=== PATIENT | female | born 1955 | race African-American/Black ===

== ENCOUNTER 2016-08-27 11:44 | Outpatient (CLI) | payer OTHER ==
--- NOTE | 2016-08-28 07:30 | Mammography Report ---
DIGITAL BILATERAL SCREENING MAMMOGRAM: 08/27/2016 CLINICAL HISTORY: A 61-year-old female in for routine screening mammogram. Family history indicates an aunt with breast cancer. Patient has had no prior breast surgeries. COMPARISON: 11/07/2006, 08/18/2008, 01/04/2011, 01/22/2012, 01/26/2013, 03/15/2014, 06/09/2015 TECHNIQUE: Craniocaudad and oblique lateral views of each breast were obtained with [facility] digital mammography. An axillary exaggerated craniocaudad view of the left breast was done to com pliment the exam. FINDINGS: Heterogeneously dense breasts are noted bilaterally. No significant clusters of calcifica tion are seen. No significant masses are noted. No change is noted. IMPRESSION: BREASTS APPEAR RADIOGRAPHICALLY BENIGN. BIRADS CATEGORY 1 - NEGATIVE. RECOMMENDATIONS: Annual bilateral screening mammography. STANDARD QUALIFYING STATEMENTS 1. This examination was reviewed with the aid of Computer-Aided Detection (CAD). 2. A negative or benign imaging report should not delay biopsy if clinically suspicious findings are present. Consider surgical consultation if warranted. More than 5% of cancers are not identified by i ing. 3. Dense breasts may obscure an underlying neoplasm. JOB #: [id number] EXT JOB #:[id number]
== END 2016-08-27 11:45 | disposition home or self-care (01) ==
LOC: DI.N 11:44
PROVIDERS: ATTEND Family Medicine
DX: Z12.31 Encounter for screening mammogram for malignant neoplasm of breast (principal)
CPT/HCPCS: 77067

== ENCOUNTER 2016-09-22 09:03 | Emergency (ER) | payer OTHER ==
[2016-09-22] MEDS ORDERED: SODIUM CHLORIDE 0.9% 1,000 ML IV ONE (10:26)
[2016-09-22 10:32] LABS: BASOPHILS % (AUTO) 0.4 %; EOSINOPHILS # (AUTO) 0.2 10^3/uL (0.0-0.7); HCT - HEMATOCRIT 38.7 % (37.0-47.0); HGB - HEMOGLOBIN 12.8 g/dL (12.0-16.0); LYMPHOCYTES # (AUTO) 1.3 10^3/uL (1.5-3.5); LYMPHOCYTES % (AUTO) 16.6 %; MEAN CORPUSCULAR HEMOGLOBIN 29.5 pg (27.0-31.0); MEAN CORPUSCULAR HGB CONC 33.1 g/dL (32.0-36.0); MEAN CORPUSCULAR VOLUME 89.1 fL (81.0-99.0); MEAN PLATELET VOLUME 9.3 fL (7.9-10.8); MONOCYTES # (AUTO) 0.6 10^3/uL (0.0-1.0); MONOCYTES % (AUTO) 7.9 %; NEUTROPHILS # (AUTO) 5.7 10^3/uL (1.5-6.6); NEUTROPHILS % (AUTO) 73.1 %; RED BLOOD COUNT 4.34 10^6/uL (4.20-5.40); RED CELL DISTRIBUTION WIDTH 13.1 % (12.0-15.0); UNCORRECTED WHITE BLOOD COUNT 7.9 x10^3/uL; WHITE BLOOD COUNT 7.9 x10^3/uL (4.8-10.8)
[2016-09-22 10:44] LABS: ALBUMIN/GLOBULIN RATIO 1.4 (1.0-2.2); BILIRUBIN,TOTAL 0.7 mg/dL (0.2-1.0); CALCIUM 9.1 mg/dL (8.5-10.3); TOTAL PROTEIN 7.3 g/dL (6.7-8.2)
[2016-09-22 10:50] LABS: BILIRUBIN,URINE NEGATIVE (NEGATIVE)
[2016-09-22 10:56] LABS: UA CHARGE (STRIP ONLY) YES; UR CULTURE IF IND NOT INDICATED
[2016-09-22] MEDS ORDERED: DEXAMETHASONE 10 MG/ML VIAL IVP STA (13:06)
[2016-09-22] MEDS ORDERED: KETOROLAC 60 MG/2 ML VIAL IVP STA (13:06)
[2016-09-22] MEDS ORDERED: diphenhydrAMINE INJ 50 MG/ML VIAL IVP STA (13:06)
[2016-09-22] MEDS ORDERED: PROCHLORPERAZINE 10 MG/2 ML VIAL IVP STA (13:06)
[2016-09-22] MEDS ORDERED: PROCHLORPERAZINE 10 MG/2 ML VIAL ONE (13:27)
[2016-09-22] MEDS ORDERED: KETOROLAC 30 MG/ML VIAL ONE (13:27)
[2016-09-22] MEDS ORDERED: diphenhydrAMINE INJ 50 MG/ML VIAL ONE (13:27)
[2016-09-22] MEDS ORDERED: DEXAMETHASONE 10 MG/ML VIAL ONE (13:28)
--- NOTE | 2016-09-22 13:40 | ED Physician Documentation ---
PD HPI NVD - Stated complaint Stated Complaint: ABD PX/DIARRHEA/FEMALE - Chief complaint Chief Complaint: Abd Pain - History obtained from History obtained from: Patient - History of Present Illness Timing - onset: Last night Timing - duration: Hours Timing - details: Gradual onset, Still present Associated symptoms: Abdominal pain, Hematochezia Contributing factors: No: Sick contact Improved by: Laying still Worsened by: Eating Similar symptoms before: Diagnosis (gastroenteritis) Recently seen: Not recently seen - Additonal information Additional information: 61-year-old female had the acute onset of nausea vomiting and diarrhea last night. She has had diarrhea numerous times and this morning she had some blood in the stool as well. She has had diarrhea previously and not frequently. Review of Systems Constitutional: reports: Chills, Fatigue. denies: Fever Eyes: denies: Decreased vision Ears: denies: Ear pain Nose: denies: Congestion Throat: denies: Sore throat Cardiac: denies: Chest pain / pressure, Palpitations Respiratory: denies: Dyspnea, Cough GI: reports: Abdominal Pain, Nausea, Vomiting, Diarrhea : denies: Dysuria, Frequency Skin: denies: Rash Musculoskeletal: denies: Neck pain, Back pain, Extremity pain PD PAST MEDICAL HISTORY - Past Medical History Cardiovascular: None Respiratory: None Endocrine/Autoimmune: None GI: GERD : Incontinence HEENT: None Psych: Depression Musculoskeletal: Osteoarthritis, Chronic back pain, Other Derm: None - Past Surgical History Past Surgical History: Yes General: Colonoscopy - Present Medications Home Medications: Ambulatory Orders Medication Instructions Recorded Confirmed Lansoprazole 30 mg PO BID 03/06/13 09/22/16 Oxycodone HCl [Oxycontin] 10 mg PO BID 03/06/13 09/22/16 Medroxyprogesterone Acetate 2.5 mg PO DAILY 05/11/13 09/22/16 PARoxetine [Paxil] 40 mg PO DAILY 05/11/13 09/22/16 Sumatriptan [Imitrex] 25 mg PO ONCE PRN 05/11/13 09/22/16 Tizanidine HCl 2 mg PO HS PRN 05/11/13 09/22/16 Amitriptyline [Elavil] 25 mg PO DAILY 09/22/16 09/22/16 Mirabegron [Myrbetriq] 25 mg PO DAILY 09/22/16 09/22/16 - Allergies Allergies/Adverse Reactions: Allergies Allergy/AdvReac Type Severity Reaction Status Date / Time metronidazole [From Flagyl] Allergy Intermediate Unknown Verified 05/11/13 14:52 Metronidazole HCl * Allergy Intermediate Unknown Verified 05/11/13 14:52 [From Flagyl] Penicillins Allergy Intermediate Hives Verified 05/11/13 14:49 tetracycline [Tetracycline] Allergy Intermediate Hives Verified 05/11/13 14:52 nortriptyline [Nortriptyline] Allergy Unknown Unknown Verified 05/11/13 14:51 cyclobenzaprine HCl * Allergy Unknown Verified 09/22/16 10:35 [From Flexeril] - Social History Does the pt smoke?: No Smoking Status: Never smoker Does the pt drink ETOH?: No Does the pt have substance abuse?: No - Immunizations Immunizations are current?: Yes - POLST Patient has POLST: No PD ED PE NORMAL - Vitals Vital signs reviewed: Yes (normal ) - General General: No acute distress, Well developed/nourished - HEENT HEENT: Atraumatic, PERRL, EOMI - Neck Neck: Supple, no meningeal sign - Cardiac Cardiac: RRR, No murmur - Respiratory Respiratory: No respiratory distress, Clear bilaterally - Abdomen Abdomen: Soft, Other (mild general tenderness without garding or rebound. ) - Back Back: No CVA TTP, No spinal TTP - Derm Derm: Normal color, Warm and dry, No rash - Extremities Extremities: No deformity, No edema - Neuro Neuro: No motor deficit, No sensory deficit - Psych Psych: Normal mood, Normal affect Results - Vitals Vitals: Vital Signs - 24 hr 09/22/16 09/22/16 09:06 12:30 Temperature 36.6 C 36.8 C Heart Rate 72 67 Respiratory 20 18 Rate Blood Pressure 110/61 138/70 H O2 Saturation 99 99 Oxygen O2 Source Room air - Labs Labs: Microbiology 09/22/16 11:50 Campylobacter Antigen Assay - Preliminary Stool Laboratory Tests 09/22/16 09/22/16 09/22/16 09:20 09:20 09:20 WBC 7.9 RBC 4.34 Hgb 12.8 Hct 38.7 MCV 89.1 MCH 29.5 MCHC 33.1 RDW 13.1 Plt Count 210 MPV 9.3 Neut # 5.7 Lymph # 1.[address] [place] # 0.6 Eos # 0.2 Baso # 0.0 Absolute Nucleated RBC 0.00 Nucleated RBCs 0.0 Sodium 138 Potassium 4.0 Chloride 105 Carbon Dioxide 25 Anion Gap 8.0 BUN 18 Creatinine 1.0 Estimated GFR (MDRD) 68 L Glucose 92 Calcium 9.1 Total Bilirubin 0.7 AST 22 ALT 18 Alkaline Phosphatase 56 Troponin I < 0.04 Total Protein 7.3 Albumin 4.3 Globulin 3.0 Albumin/Globulin Ratio 1.4 Lipase 28 Urine Color Urine Clarity Urine pH Ur Specific [place] Urine Protein Urine Glucose (UA) Urine Ketones Urine Occult Blood Urine Nitrite Urine Bilirubin Urine Urobilinogen Ur Leukocyte Esterase Ur Microscopic Review Urine Culture Comments 09/22/16 10:39 WBC RBC Hgb Hct MCV MCH MCHC RDW Plt Count MPV Neut # Lymph # [place] # Eos # Baso # Absolute Nucleated RBC Nucleated RBCs Sodium Potassium Chloride Carbon Dioxide Anion Gap BUN Creatinine Estimated GFR (MDRD) Glucose Calcium Total Bilirubin AST ALT Alkaline Phosphatase Troponin I Total Protein Albumin Globulin Albumin/Globulin Ratio Lipase Urine Color YELLOW Urine Clarity CLEAR Urine pH 6.0 Ur Specific [place] 1.010 Urine Protein NEGATIVE Urine Glucose (UA) NEGATIVE Urine Ketones NEGATIVE Urine Occult Blood TRACE-INTA Urine Nitrite NEGATIVE Urine Bilirubin NEGATIVE Urine Urobilinogen 0.2 (NORMAL) Ur Leukocyte Esterase NEGATIVE Ur Microscopic Review NOT INDICATED Urine Culture Comments NOT INDICATED Procedures - IVC sono (time) 0930 Bedside IVC sono: IVC measures (cm) (0.89), IVC collapsed c insp (cm) (completee ), Dehydration PD MEDICAL DECISION MAKING - ED course Complexity details: reviewed results, re-evaluated patient, considered differential, d/w patient ED course: 61-year-old female with acute nausea vomiting and diarrhea has developed dehydration and here in the emergency department she is administered normal saline intravenously and Zofran. She is able to produce a specimen in the emergency department which is negative for Campylobacter antigen. She is administered 2 L of name normal saline and feels improved then develops migraine -like headache. She has a history of migraines and she was treated in the emergency department for migraine with the addition of Compazine Benadryl Toradol and dexamethasone.She relates this headache is similar similar to what she has had previously with her aura and has now resolved. Departure - Departure Disposition: 01 Home, Self Care Clinical Impression: Gastroenteritis, Dehydration Migraine Qualifiers: Migraine type: with aura Status migrainosus presence: without status migrainosus Intractability: not intractable Qualified Code(s): G43.109 - Migraine with aura, not intractable, without status migrainosus Condition: Stable Instructions: ED Gastroenteritis Viral, ED Dehydration, ED Headache Migraine Follow-Up: Aric Odell DO [Primary Care Provider] -
[2016-09-22 14:20] VITALS: BP 129/69
== END 2016-09-22 14:44 | disposition home or self-care (01) ==
LOC: ED 09:03
DX: K52.9 Noninfective gastroenteritis and colitis, unspecified (principal); E86.0 Dehydration; G43.109 Migraine with aura, not intractable, without status migrainosus; K21.9 Gastro-esophageal reflux disease without esophagitis
CPT/HCPCS: 36415; 80053; 81001; 81003; 83690; 84484; 85025; 87045; 87046; 87077; 87086; 96374; 96375; 99283; 99284

== ENCOUNTER 2016-11-15 11:50 | Outpatient (CLI) | payer OTHER ==
[2016-11-15 19:21] LABS: BILIRUBIN,URINE NEGATIVE (NEGATIVE); PH,URINE 7.5 PH (5.0-7.5)
[2016-11-15 19:22] LABS: BASOPHILS % (AUTO) 0.5 %; EOSINOPHILS # (AUTO) 0.2 10^3/uL (0.0-0.7); EOSINOPHILS % (AUTO) 4.1 %; HCT - HEMATOCRIT 38.5 % (37.0-47.0); HGB - HEMOGLOBIN 12.5 g/dL (12.0-16.0); LYMPHOCYTES # (AUTO) 1.4 10^3/uL (1.5-3.5); LYMPHOCYTES % (AUTO) 26.4 %; MEAN CORPUSCULAR HEMOGLOBIN 29.9 pg (27.0-31.0); MEAN CORPUSCULAR HGB CONC 32.5 g/dL (32.0-36.0); MEAN PLATELET VOLUME 9.4 fL (7.9-10.8); MONOCYTES # (AUTO) 0.5 10^3/uL (0.0-1.0); MONOCYTES % (AUTO) 9.9 %; NEUTROPHILS % (AUTO) 59.1 %; RED BLOOD COUNT 4.19 10^6/uL (4.20-5.40); RED CELL DISTRIBUTION WIDTH 13.3 % (12.0-15.0); UNCORRECTED WHITE BLOOD COUNT 5.1 x10^3/uL; WHITE BLOOD COUNT 5.1 x10^3/uL (4.8-10.8)
[2016-11-15 19:25] LABS: WBC,URINE 0-3 /HPF (0-5)
[2016-11-15 19:43] LABS: ALBUMIN/GLOBULIN RATIO 1.6 (1.0-2.2); BILIRUBIN,TOTAL 0.7 mg/dL (0.2-1.0); BUN - BLOOD UREA NITROGEN 15 mg/dL (6-20); CALCIUM 8.9 mg/dL (8.5-10.3); CARBON DIOXIDE - CO2 29 mmol/L (21-32); CHLORIDE 102 mmol/L (101-111); CHOL/HDL RATIO 2.8 (<4.4); CHOLESTEROL 177 mg/dL; GFR - MDRD 68 (>89); GLUCOSE 83 mg/dL (70-100); HDL CHOLESTEROL 64 mg/dL; LDL/HDL RATIO 1.5 (<4.4); POTASSIUM 4.2 mmol/L (3.5-5.0); SODIUM 138 mmol/L (135-145); TOTAL PROTEIN 7.2 g/dL (6.7-8.2); TRIGLYCERIDES 102 mg/dL; VLDL CHOLESTEROL 20 mg/dL
== END 2016-11-15 11:51 | disposition home or self-care (01) ==
LOC: LAB.WCP 11:50
PROVIDERS: ATTEND Family Medicine
DX: R07.89 Other chest pain (principal); R31.9 Hematuria, unspecified
CPT/HCPCS: 36415; 80053; 80061; 81001; 84443; 84484; 85025

== ENCOUNTER 2017-01-31 09:55 | Outpatient (CLI) | payer OTHER ==
[2017-01-31] MEDS ORDERED: IOPAMIDOL-300 50 ML VIAL ONE (10:05)
[2017-01-31] MEDS ORDERED: IOPAMIDOL-300 100 ML VIAL ONE (10:05)
[2017-01-31] MEDS ORDERED: IOPAMIDOL-300 50 ML VIAL PO ONE (11:47)
[2017-01-31] MEDS ORDERED: IOPAMIDOL-300 100 ML VIAL IVP ONE (11:47)
--- NOTE | 2017-01-31 12:50 | CT Report ---
CT OF THE ABDOMEN AND PELVIS WITH CONTRAST: 01/31/2017 CLINICAL INDICATION: Abdominal bloating. TECHNIQUE: Axial CT images of the abdomen and pelvis were obtained with 100 mL of Isovue-300 intraven ously as well as oral contrast. COMPARISON: 10/02/2015. FINDINGS: Limited evaluation of the lung bases is unremarkable. ABDOMEN: The liver, spleen, pancreas, kidneys and adrenal glands are unremarkable. The gallbladder is not dilated. No bowel dilatation, free gas, or free fluid is present. No abdominal adenopathy is see n. PELVIS: The pelvic organs appear unremarkable. The appendix is seen in the right lower quadrant, and is normal in caliber. No pelvic adenopathy or free fluid is present. The osseous structures demonstrate stable degenerative and postsurgical changes. IMPRESSION: NO EVIDENT ETIOLOGY FOR PATIENT'S BLOATING. NO SIGNIFICANT INTERVAL CHANGE FROM 10/02/19 16. In accordance with CT protocol optimization, one or more of the following dose reduction techniques w ere utilized for this exam: automated exposure control, adjustment of mA and/or KV based on patient size, or use of iterative reconstructive technique. JOB #: [id number] EXT JOB #:[id number]
== END 2017-01-31 09:56 | disposition home or self-care (01) ==
LOC: DI 09:55
PROVIDERS: ATTEND Family Medicine
DX: R14.0 Abdominal distension (gaseous) (principal)
CPT/HCPCS: 74177; Q9967

== ENCOUNTER 2018-03-14 11:46 | Emergency (ER) | payer OTHER ==
[2018-03-14] MEDS ORDERED: IBUPROFEN 800 MG TABLET PO STA (12:27)
--- NOTE | 2018-03-14 12:31 | ED Physician Documentation ---
PD HPI SYNCOPE - Stated complaint Stated Complaint: GLF - Chief complaint Chief Complaint: Neuro - History obtained from History obtained from: Patient - History of Present Illness Witnessed: Unwitnessed (6 nights ago on [place] she was having a migraine with is not atypical for her. She had taken her usual medications which include amitriptyline And Imitrex. She went to the bathroom and started to feel dizzy and either fell and then blacked out or syncopized. She does not know how long she was out for and somehow made her way back to the bed. Her daughter checked on her the next morning, she was incontinent of urine. They got her up and change her and then she went to back to bed for another 24 hours. Since then she is feeling okay and her migraine is gone but she does have left-sided high neck pain that is worse with certain positions and rotation. She also noted bloody stools yesterday which she has had before, her last colonoscopy was many years ago. There is no associated chest pain or shortness of breath. She is not anticoagulated.) Review of Systems Constitutional: denies: Fever, Chills Eyes: reports: Loss of vision (Chronic, she has terrible glaucoma status post several surgeries) Ears: denies: Loss of hearing, Ear pain Nose: denies: Rhinorrhea / runny nose, Congestion, Epistaxis Throat: denies: Sore throat Cardiac: denies: Chest pain / pressure, Palpitations Respiratory: denies: Dyspnea, Cough PD PAST MEDICAL HISTORY - Past Medical History Cardiovascular: None Respiratory: None Endocrine/Autoimmune: None GI: GERD : Incontinence HEENT: None Psych: Depression Musculoskeletal: Osteoarthritis, Chronic back pain, Other Derm: None - Past Surgical History Past Surgical History: Yes General: Colonoscopy - Present Medications Home Medications: Ambulatory Orders Medication Instructions Recorded Confirmed Lansoprazole 30 mg PO BID 03/06/13 09/22/16 Oxycodone HCl [Oxycontin] 10 mg PO BID 03/06/13 09/22/16 Medroxyprogesterone Acetate 2.5 mg PO DAILY 05/11/13 09/22/16 PARoxetine [Paxil] 40 mg PO DAILY 05/11/13 09/22/16 SUMAtriptan [Imitrex] 25 mg PO ONCE PRN 05/11/13 09/22/16 Tizanidine HCl 2 mg PO HS PRN 05/11/13 09/22/16 Amitriptyline [Elavil] 25 mg PO DAILY 09/22/16 09/22/16 Mirabegron [Myrbetriq] 25 mg PO DAILY 09/22/16 09/22/16 - Allergies Allergies/Adverse Reactions: Allergies Allergy/AdvReac Type Severity Reaction Status Date / Time metronidazole [From Flagyl] Allergy Intermediate Unknown Verified 05/11/13 14:52 Metronidazole HCl * Allergy Intermediate Unknown Verified 05/11/13 14:52 [From Flagyl] Penicillins Allergy Intermediate Hives Verified 05/11/13 14:49 tetracycline [Tetracycline] Allergy Intermediate Hives Verified 05/11/13 14:52 nortriptyline [Nortriptyline] Allergy Unknown Unknown Verified 05/11/13 14:51 cyclobenzaprine HCl * Allergy Unknown Verified 03/14/18 11:53 [From Flexeril] - Social History Does the pt smoke?: No Smoking Status: Never smoker Does the pt drink ETOH?: No Does the pt have substance abuse?: No - Immunizations Immunizations are current?: Yes - POLST Patient has POLST: No PD ED PE NORMAL - Vitals Vital signs reviewed: Yes - General General: Alert and oriented X 3, No acute distress - HEENT HEENT: Other (Dilated pupils with sequela of multiple surgeries) - Neck Neck: Supple, no meningeal sign, No bony TTP, Other (Tender over the left sternocleidomastoid) - Cardiac Cardiac: RRR, No murmur - Respiratory Respiratory: No respiratory distress, Clear bilaterally - Abdomen Abdomen: Non tender - Back Back: No CVA TTP, No spinal TTP - Derm Derm: Normal color, Warm and dry - Extremities Extremities: No edema, No calf tenderness / cord - Neuro Neuro: Alert and oriented X 3 Eye Opening: Spontaneous Motor: Obeys Commands Verbal: Oriented GCS Score: 15 - Psych Psych: Normal mood, Normal affect Results - Vitals Vitals: Vital Signs - 24 hr 03/14/18 11:50 Temperature 36.2 C L Heart Rate 98 Respiratory 20 Rate Blood Pressure 129/111 H O2 Saturation 100 Oxygen O2 Source Room air - EKG (time done) 1243 Rate: Rate (enter#) (84) Rhythm: NSR [place]: Normal Intervals: Normal [place] QRS: Low voltage Ischemia: Normal ST segments Computer interpretation: Agree with computer - Labs Labs: Laboratory Tests 03/14/18 03/14/18 03/14/18 12:12 12:37 12:37 WBC 5.9 RBC 4.36 Hgb 13.2 Hct 39.1 MCV 89.7 MCH 30.3 MCHC 33.8 RDW 13.3 Plt Count 202 MPV 8.8 Neut # (Auto) 3.6 Lymph # (Auto) 1.3 L [place] # (Auto) 0.7 Eos # (Auto) 0.2 Baso # (Auto) 0.0 Absolute Nucleated RBC 0.00 Nucleated RBC % 0.0 Sodium 138 Potassium 4.3 Chloride 103 Carbon Dioxide 25 Anion Gap 10.0 BUN 19 Creatinine 1.2 H Estimated GFR (MDRD) 55 L Glucose 95 Calcium 9.0 Total Bilirubin 0.6 AST 66 H ALT 46 Alkaline Phosphatase 54 Total Protein 7.7 Albumin 4.2 Globulin 3.5 Albumin/Globulin Ratio 1.2 Lipase 41 Urine Color YELLOW Urine Clarity CLEAR Urine pH 6.0 Ur Specific [place] 1.010 Urine Protein NEGATIVE Urine Glucose (UA) NEGATIVE Urine Ketones NEGATIVE Urine Occult Blood SMALL H Urine Nitrite NEGATIVE Urine Bilirubin NEGATIVE Urine Urobilinogen 0.2 (NORMAL) Ur Leukocyte Esterase NEGATIVE Urine RBC 0-5 Urine WBC 6-10 H Ur Squamous Epith Cells FEW Squamous Urine Bacteria Rare Ur Microscopic Review INDICATED Urine Culture Comments INDICATED - Rads (name of study) CT Head and Cspine Radiology: EMP read contemporaneously (NAD, DDD/DJD) PD MEDICAL DECISION MAKING - ED course ED course: 63-year-old woman with what sounds like a syncopal episode in the midst of a migraine 6 days ago with persistent left-sided neck pain that is most consistent with neck spasm given that it is reproducible on examination and much worse with certain motions especially rotation and positions. Workup here was negative for significant diagnostic abnormalities except for potential UTI, she has no real symptoms of UTI so I would wait for culture on this. Departure - Departure Disposition: 01 Home, Self Care Clinical Impression: Neck muscle spasm Syncope Qualifiers: Syncope type: unspecified Qualified Code(s): R55 - Syncope and collapse Headache Qualifiers: Headache type: unspecified Headache chronicity pattern: acute headache Intractability: not intractable Qualified Code(s): R51 - Headache Head injury Qualifiers: Encounter type: initial encounter Qualified Code(s): S09.90XA - Unspecified injury of head, initial encounter Condition: Good Record reviewed to determine appropriate education?: Yes Instructions: ED Cephalgia Unspecified Comments: Drink plenty of fluids. Return for new or worsening symptoms. Follow-up with your doctor this coming week for recheck.
[2018-03-14 12:41] LABS: BILIRUBIN,URINE NEGATIVE (NEGATIVE); GLUCOSE, URINE (UA) NEGATIVE (NEGATIVE); KETONES,URINE (UA) NEGATIVE (NEGATIVE); LEUKOCYTE ESTERASE, URINE NEGATIVE (NEGATIVE); NITRITE,URINE NEGATIVE (NEGATIVE); OCCULT BLOOD,URINE SMALL (NEGATIVE); PROTEIN,URINE NEGATIVE (NEGATIVE); UROBILINOGEN,URINE 0.2 (NORMAL) E.U./dL (NORMAL)
[2018-03-14 12:43] LABS: BASOPHILS % (AUTO) 0.8 %; EOSINOPHILS # (AUTO) 0.2 10^3/uL (0.0-0.7); EOSINOPHILS % (AUTO) 3.8 %; HGB - HEMOGLOBIN 13.2 g/dL (12.0-16.0); LYMPHOCYTES # (AUTO) 1.3 10^3/uL (1.5-3.5); LYMPHOCYTES % (AUTO) 21.6 %; MEAN CORPUSCULAR HEMOGLOBIN 30.3 pg (27.0-31.0); MEAN CORPUSCULAR HGB CONC 33.8 g/dL (32.0-36.0); MEAN CORPUSCULAR VOLUME 89.7 fL (81.0-99.0); MEAN PLATELET VOLUME 8.8 fL (7.9-10.8); MONOCYTES # (AUTO) 0.7 10^3/uL (0.0-1.0); MONOCYTES % (AUTO) 12.6 %; NEUTROPHILS # (AUTO) 3.6 10^3/uL (1.5-6.6); NEUTROPHILS % (AUTO) 61.2 %; PLT - PLATELET COUNT 202 10^3/uL (130-450); RED BLOOD COUNT 4.36 10^6/uL (4.20-5.40); RED CELL DISTRIBUTION WIDTH 13.3 % (12.0-15.0); WHITE BLOOD COUNT 5.9 x10^3/uL (4.8-10.8)
[2018-03-14 12:43] LABS: CLARITY,URINE CLEAR (CLEAR)
[2018-03-14 12:53] LABS: ALBUMIN 4.2 g/dL (3.2-5.5); ALBUMIN/GLOBULIN RATIO 1.2 (1.0-2.2); BILIRUBIN,TOTAL 0.6 mg/dL (0.2-1.0); CREATININE 1.2 mg/dL (0.4-1.0); TOTAL PROTEIN 7.7 g/dL (6.7-8.2)
[2018-03-14 12:53] LABS: BACTERIA,URINE Rare /HPF (None Seen); RBC,URINE 0-5 /HPF (0-5); SQUAMOUS EPITHELIAL CELL,UR FEW Squamous (<= Few)
--- NOTE | 2018-03-14 13:11 | CT Report ---
Reason: headache, syncope fall Procedure Date: 03/14/2018 Accession Number: [id number] / [id number] Procedure: CT - Head W/O CPT Code: FULL RESULT: EXAM: CT HEAD EXAM DATE: 03/14/2018 12:57 PM. CLINICAL HISTORY: Headache, syncope fall. COMPARISON: MRI BRAIN W TECHNIQUE: Multiaxial CT images were obtained from the foramen magnum to the vertex. Reformats: Sagittal and coronal. IV contrast: None. In accordance with CT protocol optimization, one or more of the following dose reduction techniques were utilized for this exam: automated exposure control, adjustment of mA and/or KV based on patient size, or use of iterative reconstructive technique. FINDINGS: Parenchyma: Negative for acute intracranial hemorrhage. No midline shift or mass-effect. Woo-white matter differentiation is preserved. Extraaxial Spaces: Normal for age. No subdural or epidural collections identified. Ventricles: Normal in size and position. Sinuses and Orbits: Previous left orbit surgery. The paranasal sinuses and mastoid sinuses appear clear. Bones: No evidence of fracture or calvarial defect. Other: None. IMPRESSION: 1. Negative for an acute focal intracranial abnormality. RADIA
--- NOTE | 2018-03-14 13:23 | CT Report ---
Reason: neck pain fall Procedure Date: 03/14/2018 Accession Number: [id number] / [id number] Procedure: CT - Cervical Spine W/O CPT Code: FULL RESULT: EXAM: CT CERVICAL SPINE WITHOUT CONTRAST DATE: 03/14/2018 12:57 PM. HISTORY: Neck pain. Fall. COMPARISONS: MRI cervical spine 06/21/2011 12:33 PM. TECHNIQUE: Thin-section axial images were acquired of the cervical spine without contrast. Post-processing: Coronal and sagittal reformats. Other: None. In accordance with CT protocol optimization, one or more of the following dose reduction techniques were utilized for this exam: automated exposure control, adjustment of mA and/or KV based on patient size, or use of iterative reconstructive technique. FINDINGS: Alignment: There is a 14 degrees levoscoliosis centered on C6. Anterior fusion plate from C3-C6. Flattening of the cervical lordosis. Bones: Successful bony fusion of the C3-C6 vertebral bodies and their facet joints. No visible fracture. Interspace Levels/Facets: C1-C2: Unremarkable. C2-C3: Broad-based posterior disk osteophyte complex causes moderate canal narrowing. There is severe facet joint osteoarthritis with severe right and moderate left foraminal narrowing. C3-C4: Minimal left foraminal narrowing. Canal is patent. C4-C5: Minimal foraminal narrowing. Minimal canal narrowing. C5-C6: There are posteriorly projecting osteophytes from the fused vertebra causing moderate canal narrowing. There is moderate right foraminal narrowing. The left neural foramen is patent. C6-C7: There are posteriorly projecting osteophytes causing mild canal narrowing. There is moderate left and mild right foraminal narrowing. C7-T1: There is moderate bilateral foraminal narrowing. There is minimal canal narrowing. Musculature: Normal. No fatty atrophy. Other: The paravertebral and prevertebral soft tissues are unremarkable. The lung apices are clear. IMPRESSION: 1. Fusion from C3-C6. Anterior fusion plate still in situ. Successful bony fusion of the vertebral bodies and facet joints. 2. No visible fracture. 3. Multilevel degenerative change worst at C2-C3. 4. Despite fusion, there is persistent foraminal narrowing at C5-C6 and C6-C7. 5. C7-T1: Moderate bilateral foraminal narrowing with minimal canal narrowing. RADIA
[2018-03-14 13:42] VITALS: BP 137/83
== END 2018-03-14 13:43 | disposition home or self-care (01) ==
LOC: ED 11:46
DX: M62.838 Other muscle spasm (principal); R55 Syncope and collapse; R51 Headache; S09.90XA Unspecified injury of head, initial encounter; W18.30XA Fall on same level, unspecified, initial encounter
CPT/HCPCS: 36415; 70450; 72125; 80053; 81001; 83690; 85025; 87086; 93005; 99283; A9270; 81003

== ENCOUNTER 2018-10-26 08:00 | Outpatient (CLI) | payer OTHER ==
[2018-10-26 19:06] LABS: BASOPHILS % (AUTO) 0.6 %; EOSINOPHILS # (AUTO) 0.3 10^3/uL (0.0-0.7); EOSINOPHILS % (AUTO) 5.1 %; HGB - HEMOGLOBIN 12.4 g/dL (12.0-16.0); LYMPHOCYTES # (AUTO) 1.6 10^3/uL (1.5-3.5); LYMPHOCYTES % (AUTO) 29.3 %; MEAN CORPUSCULAR HEMOGLOBIN 29.8 pg (27.0-31.0); MEAN CORPUSCULAR HGB CONC 31.9 g/dL (32.0-36.0); MEAN CORPUSCULAR VOLUME 93.5 fL (81.0-99.0); MEAN PLATELET VOLUME 11.6 fL (7.9-10.8); MONOCYTES # (AUTO) 0.6 10^3/uL (0.0-1.0); MONOCYTES % (AUTO) 10.3 %; NEUTROPHILS # (AUTO) 2.9 10^3/uL (1.5-6.6); NEUTROPHILS % (AUTO) 54.3 %; PLT - PLATELET COUNT 222 10^3/uL (130-450); RED BLOOD COUNT 4.16 10^6/uL (4.20-5.40); RED CELL DISTRIBUTION WIDTH 13.3 % (12.0-15.0); WHITE BLOOD COUNT 5.3 x10^3/uL (4.8-10.8)
[2018-10-26 19:20] LABS: ALBUMIN 4.1 g/dL (3.2-5.5); ALBUMIN/GLOBULIN RATIO 1.3 (1.0-2.2); ALKALINE PHOSPHATASE 42 IU/L (42-121); ALT ALANINE AMINOTRANSFERASE 20 IU/L (10-60); AST ASPARTATE AMINOTRANSFERASE 24 IU/L (10-42); BILIRUBIN,TOTAL 0.6 mg/dL (0.2-1.0); BUN - BLOOD UREA NITROGEN 16 mg/dL (6-20); CALCIUM 9.2 mg/dL (8.5-10.3); CARBON DIOXIDE - CO2 26 mmol/L (21-32); CHLORIDE 106 mmol/L (101-111); CHOLESTEROL 186 mg/dL; GFR - MDRD 68 (>89); GLUCOSE 87 mg/dL (70-100); HDL CHOLESTEROL 63 mg/dL; LDL CHOLESTEROL,CALCULATED 105 mg/dL; LDL/HDL RATIO 1.7 (<4.4); SODIUM 141 mmol/L (135-145); TOTAL PROTEIN 7.3 g/dL (6.7-8.2); VLDL CHOLESTEROL 18 mg/dL
== END 2018-10-26 23:59 | disposition home or self-care (01) ==
LOC: LAB.WCP 08:00
PROVIDERS: ATTEND Family Medicine
DX: R07.9 Chest pain, unspecified (principal)
CPT/HCPCS: 36415; 80053; 80061; 83721; 85025; 85379

== ENCOUNTER 2018-10-28 09:40 | Outpatient (CLI) | payer OTHER ==
--- NOTE | 2018-10-29 13:13 | XRAY Report ---
Reason: CHEST PAIN Procedure Date: 10/28/2018 Accession Number: [id number] / [id number] Procedure: WCP - Chest 2 View X-Ray CPT Code: 84212 FULL RESULT: EXAM: CHEST RADIOGRAPHY EXAM DATE: 10/28/2018 09:40 AM. CLINICAL HISTORY: Chest pain. COMPARISON: CHEST 2 VIEW PA/LAT 11/15/2016 11:07 AM. TECHNIQUE: 2 views. FINDINGS: Lungs/Pleura: No focal opacities evident. No pleural effusion. No pneumothorax. Lung volumes increased. Mediastinum: Heart size is normal. Aorta is mildly tortuous. Other: Mild degenerative changes involving the mid thoracic spine. Dextroscoliosis of the thoracic spine. IMPRESSION: 1. No acute disease in the chest. RADIA
== END 2018-10-28 23:59 | disposition home or self-care (01) ==
LOC: DI.WCP 09:40 → EDSTATUS 13:15 → DI.WCP 23:59
PROVIDERS: ATTEND Family Medicine
DX: R07.9 Chest pain, unspecified (principal)
CPT/HCPCS: 71046

== ENCOUNTER 2019-01-14 11:26 | Outpatient (CLI) | payer OTHER ==
--- NOTE | 2019-01-15 09:14 | Mammography Report ---
Reason: SCREENING MAMMO Procedure Date: 01/14/2019 Accession Number: [id number] / [id number] Procedure: MGN - Screening Mammo Dig Bilat CPT Code: Final Report FULL RESULT: EXAM: Screening Mammo Dig Bilat DATE: 01/14/2019 11:58 AM CLINICAL HISTORY: Screening encounter. History of early menses. TECHNIQUE: (B) - Bilateral CC and MLO views were obtained. COMPARISON: 08/27/2016 through 12/27/2010. PARENCHYMAL PATTERN: (D) - The breast(s) demonstrate(s) heterogeneously dense fibroglandular parenchyma. FINDINGS: There are no suspicious masses, calcifications, or areas of distortion. IMPRESSION: Negative examination. BI-RADS category 1. RECOMMENDATION: (ANNUAL) - Recommend routine annual screening mammography. BI-RADS CATEGORY: (1) - Negative. STANDARD QUALIFYING STATEMENTS: 1. This examination was not reviewed with the aid of Computer-Aided Detection (CAD). 2. A negative or benign imaging report should not preclude biopsy if clinically suspicious findings are present. 3. Dense breasts may obscure an underlying neoplasm. 4. This examination was reviewed without the aid of 3D breast imaging (tomosynthesis).
== END 2019-01-14 11:27 | disposition home or self-care (01) ==
LOC: DI.N 11:26
DX: Z12.31 Encounter for screening mammogram for malignant neoplasm of breast (principal)
CPT/HCPCS: 77067

== ENCOUNTER 2019-02-12 14:31 | Outpatient (CLI) | payer OTHER ==
--- NOTE | 2019-02-13 19:36 | XRAY Report ---
Reason: LEFT KNEE PAIN Procedure Date: 02/12/2019 Accession Number: [id number] / [id number] Procedure: WCP - Knee 3 View LT CPT Code: Final Report FULL RESULT: EXAM: LEFT KNEE RADIOGRAPHY EXAM DATE: 02/12/2019 02:31 PM. CLINICAL HISTORY: Left knee pain. COMPARISON: None. TECHNIQUE: 3 views. FINDINGS: Bones: Normal. No fractures or bone lesions. Joints: Mild tricompartmental degenerative changes with joint space loss and osteophytosis, worst in the patellofemoral joint. No effusion. No subluxations. Soft Tissues: Normal. No soft tissue swelling. IMPRESSION: Mild degenerative changes in the left knee without abnormality seen. RADIA
== END 2019-02-12 23:59 | disposition home or self-care (01) ==
LOC: DI.WCP 14:31
PROVIDERS: ATTEND Family Medicine
DX: M17.12 Unilateral primary osteoarthritis, left knee (principal)

== ENCOUNTER 2019-12-14 11:56 | Emergency (ER) | payer MEDICARE, OTHER ==
[2019-12-14 12:15] VITALS: BP 143/75
== END 2019-12-14 13:31 | disposition left against medical advice (07) ==
LOC: ED 11:56
DX: Z53.21 Procedure and treatment not carried out due to patient leaving prior to being seen by health care provider (principal)

== ENCOUNTER 2020-04-07 11:05 | Outpatient (CLI) | payer MEDICARE ==
[2020-04-07 17:49] LABS: BASOPHILS % (AUTO) 0.7 %; EOSINOPHILS # (AUTO) 0.2 10^3/uL (0.0-0.7); LYMPHOCYTES # (AUTO) 1.5 10^3/uL (1.5-3.5); LYMPHOCYTES % (AUTO) 27.6 %; MEAN CORPUSCULAR HEMOGLOBIN 29.9 pg (27.0-31.0); MEAN CORPUSCULAR VOLUME 93.3 fL (81.0-99.0); MEAN PLATELET VOLUME 12.4 fL (7.9-10.8); MONOCYTES # (AUTO) 0.6 10^3/uL (0.0-1.0); MONOCYTES % (AUTO) 10.8 %; NEUTROPHILS # (AUTO) 3.1 10^3/uL (1.5-6.6); NEUTROPHILS % (AUTO) 56.7 %; PLT - PLATELET COUNT 194 10^3/uL (130-450); RED BLOOD COUNT 4.35 10^6/uL (4.20-5.40); WHITE BLOOD COUNT 5.5 x10^3/uL (4.8-10.8)
[2020-04-07 18:05] LABS: ALBUMIN 4.3 g/dL (3.2-5.5); ALBUMIN/GLOBULIN RATIO 1.5 (1.0-2.2); ALKALINE PHOSPHATASE 43 IU/L (42-121); ALT ALANINE AMINOTRANSFERASE 16 IU/L (10-60); AST ASPARTATE AMINOTRANSFERASE 22 IU/L (10-42); BILIRUBIN,TOTAL 0.9 mg/dL (0.2-1.0); BUN - BLOOD UREA NITROGEN 21 mg/dL (6-20); CALCIUM 9.4 mg/dL (8.5-10.3); CARBON DIOXIDE - CO2 27 mmol/L (21-32); CHLORIDE 102 mmol/L (101-111); CHOL/HDL RATIO 3.5 (<4.4); CHOLESTEROL 222 mg/dL; CREATININE 1.3 mg/dL (0.4-1.0); GLUCOSE 81 mg/dL (70-100); HDL CHOLESTEROL 63 mg/dL; LDL CHOLESTEROL,CALCULATED 131 mg/dL; LDL/HDL RATIO 2.1 (<4.4); TOTAL PROTEIN 7.1 g/dL (6.7-8.2); VLDL CHOLESTEROL 28 mg/dL
[2020-04-07 18:30] LABS: HEMOGLOBIN A1c% 5.5 % (4.27-6.07)
== END 2020-04-07 11:06 | disposition home or self-care (01) ==
LOC: LAB.N 11:05
PROVIDERS: ATTEND Family Medicine
DX: Z00.00 Encounter for general adult medical examination without abnormal findings (principal); N28.9 Disorder of kidney and ureter, unspecified
CPT/HCPCS: 36415; 80053; 80061; 83036; 83721; 84443; 85025

== ENCOUNTER 2020-04-07 11:21 | Outpatient (CLI) | payer MEDICARE ==
--- NOTE | 2020-04-07 16:39 | XRAY Report ---
PROCEDURE: Cervical Spine 2 View INDICATIONS: NECK PAIN, LOW BACK PAIN TECHNIQUE: 3 view(s) of the cervical spine were acquired. COMPARISON: CT cervical spine 03/24/2018 FINDINGS: Bones: No fractures or dislocations to the C7-T1 level. The lateral masses of C1 appear intact on t he odontoid view. No suspicious bony lesions. Anterior fusion is present from C3 through C6. There is good anatomic alignment. Hardware is intact without hardware fracture or periprosthetic loosening. There is overall straightening of normal cervical curvature. Severe disc space narrowing is present at C6-7 with anterior osteophyte. Soft tissues: No prevertebral soft tissue swelling. IMPRESSION: Postsurgical and degenerative changes as above. Reviewed by: Veronica Cordova MD on 04/07/2020 4:38 PM [facility] Approved by: Veronica Cordova MD on 04/07/2020 4:38 PM [facility] Station ID: [id number]
--- NOTE | 2020-04-07 16:41 | XRAY Report ---
PROCEDURE: Lumbar Spine Complete INDICATIONS: LOW BACK PAIN, CHRONIC TECHNIQUE: 4 views of the lumbar spine were acquired. COMPARISON: MRI lumbar spine 07/01/2013 FINDINGS: Bones: 5 [id number]-[id number] vertebrae are present. There is normal bony alignment. Posterior fusion is present at L5-S1. There is good anatomic alignment. Hardware appears intact without evidence of hard pearl fracture or periprosthetic loosening. Prosthetic disc/intervertebral spacers noted at L5-S1. The re is moderate disc space narrowing throughout the lumbar spine most notable at L2-3, L3-4, L4-5. Sev ere foraminal narrowing is noted at L3-4, L4-5 and L5-S1. No vertebral body compression fractures. N o suspicious bony lesions. Soft tissues: Overlying bowel gas pattern is normal. No suspicious soft tissue calcifications. IMPRESSION: Postsurgical changes of degenerative changes as above. Reviewed by: Veronica Cordova MD on 04/07/2020 4:39 PM PST Approved by: Veronica Cordova MD on 04/07/2020 4:39 PM PST Station ID: [id number]
== END 2020-04-07 11:22 | disposition home or self-care (01) ==
LOC: DI.N 11:21
PROVIDERS: ATTEND Family Medicine
DX: Z00.00 Encounter for general adult medical examination without abnormal findings (principal); N28.9 Disorder of kidney and ureter, unspecified; M48.02 Spinal stenosis, cervical region; M47.812 Spondylosis without myelopathy or radiculopathy, cervical region; M47.816 Spondylosis without myelopathy or radiculopathy, lumbar region; Z98.1 Arthrodesis status
CPT/HCPCS: 36415; 80053; 80061; 83036; 83721; 84443; 85025

== ENCOUNTER 2020-09-21 17:54 | Emergency (ER) | payer MEDICARE ==
--- NOTE | 2020-09-21 18:33 | ED Physician Documentation ---
History of Present Illness - Stated complaint Stated Complaint: CP - Chief complaint Chief Complaint: Cardiac - Additonal information Additional information: 65-year-old female was advised come to the ER from her home health nurse for evaluation of chest discomfort. She underwent a laminectomy in the lumbar L3-5 at [facility] on 30 August. This was done under general endotracheal anesthesia. She has been recuperating at home but she has noticed that she develops some chest pain/pressure the last few days. On occasion it has radiated to her left arm as well as her left jaw. It does seem to be worse with activity and exertion and improved with rest. She is occasionally short of air. She has had some coughing fits. She denies any history of hypertension or diabetes. She quit smoking 15 years ago. She reportedly underwent a negative cardiac stress test at [facility] within the last 2 years. She is on estradiol for menopause. Also taking pregabalin, oxycodone, and tizanidine for her neuropathy and back pain. Review of Systems Constitutional: denies: Fever, Chills Eyes: reports: Reviewed and negative Nose: reports: Reviewed and negative Throat: reports: Reviewed and negative Cardiac: reports: Chest pain / pressure. denies: Palpitations, Pedal edema, Calf pain Respiratory: reports: Dyspnea. denies: Cough, Hemoptysis, Wheezing GI: reports: Reviewed and negative : reports: Reviewed and negative Skin: reports: Reviewed and negative Musculoskeletal: reports: Reviewed and negative PD PAST MEDICAL HISTORY - Past Medical History Cardiovascular: None Respiratory: None Neuro: Migraines Endocrine/Autoimmune: None GI: GERD : Incontinence HEENT: None Psych: Depression Musculoskeletal: Osteoarthritis, Chronic back pain, Other Derm: None - Past Surgical History Past Surgical History: Yes General: Colonoscopy Ortho: Spine surgery - Present Medications Home Medications: Ambulatory Orders Medication Instructions Recorded Confirmed Lansoprazole 30 mg PO BID 03/06/13 09/22/16 Oxycodone HCl [Oxycontin] 10 mg PO BID 03/06/13 09/22/16 Medroxyprogesterone Acetate 2.5 mg PO DAILY 05/11/13 09/22/16 PARoxetine [Paxil] 40 mg PO DAILY 05/11/13 09/22/16 SUMAtriptan [Imitrex] 25 mg PO ONCE PRN 05/11/13 09/22/16 Tizanidine HCl 2 mg PO HS PRN 05/11/13 09/22/16 Amitriptyline [Elavil] 25 mg PO DAILY 09/22/16 09/22/16 Mirabegron [Myrbetriq] 25 mg PO DAILY 09/22/16 09/22/16 Hydrocodone/Acetaminophen 1 - 2 each PO Q6H PRN #14 tablet 03/14/18 [Hydrocodon-Acetaminophen 5-325] Apixaban [Eliquis] 10 mg PO BID 7 Days #28 tablet 09/21/20 Pregabalin [Lyrica] 150 mg PO BID 09/21/20 09/21/20 oxyCODONE [Roxicodone] 15 mg PO Q4-6H PRN 09/21/20 09/21/20 - Allergies Allergies/Adverse Reactions: Allergies Allergy/AdvReac Type Severity Reaction Status Date / Time metronidazole [From Flagyl] Allergy Intermediate Unknown Verified 12/14/19 12:10 Metronidazole HCl * Allergy Intermediate Unknown Verified 12/14/19 12:10 [From Flagyl] Penicillins Allergy Intermediate Hives Verified 12/14/19 12:10 tetracycline [Tetracycline] Allergy Intermediate Hives Verified 12/14/19 12:10 nortriptyline [Nortriptyline] Allergy Unknown Unknown Verified 12/14/19 12:10 cyclobenzaprine HCl * Allergy Unknown Verified 12/14/19 12:10 [From Flexeril] - Social History Does the pt smoke?: No Smoking Status: Never smoker Does the pt drink ETOH?: No Does the pt have substance abuse?: No - Immunizations Immunizations are current?: Yes - POLST Patient has POLST: No PD ED PE EXPANDED - General General: Alert, No acute distress, Well developed/nourished - Neck Neck: Supple w/out meningeal sx. No: Adenopathy - Cardiac Cardiac: Regular Rate, Radial strong equal, Pedal strong equal, Cap refill < 2 sec. No: Murmur Present - Respiratory Respiratory: Clear to ausultation oc. No: Distress, Labored - Abdomen Abdomen: Normal Bowel sounds. No: Tender to palpation - Back Back: Other (Lower lumbar postoperative incisions are evaluated and appear well- healed and approximated without surrounding erythema or significant tenderness. No drainage noted.) - Extremities Extremities: Normal. No: Deformity, Tenderness - Neuro Neuro: Alert and Oriented X 3, CNII-XII intact - GCS Eye Opening: Spontaneous Motor: Obeys Commands Verbal: Oriented Total: 15 Results - Vitals Vitals: Vital Signs - 24 hr 09/21/20 09/21/20 09/21/20 17:56 18:30 18:38 Temperature 36.3 C L Heart Rate 71 69 Respiratory 16 14 Rate Blood Pressure 95/53 L 130/75 Blood Pressure 113/42 L [Left] Blood Pressure 130/75 [Right] O2 Saturation 97 98 09/21/20 09/21/20 09/21/20 19:00 19:30 20:00 Temperature Heart Rate 71 73 72 Respiratory 12 14 14 Rate Blood Pressure 113/42 L 132/92 H 130/78 Blood Pressure [Left] Blood Pressure [Right] O2 Saturation 99 99 97 Oxygen O2 Source Room air - EKG (time done) 1802 Rate: Rate (enter#) (71) Rhythm: NSR Strawn: Normal Intervals: Normal MD. No: Prolonged QT QRS: Low voltage Ischemia: Non specific changes Compare to prior EKG: Old EKG unavailable Computer interpretation: Agree with computer - Labs Labs: Laboratory Tests 09/21/20 09/21/20 09/21/20 18:32 18:32 18:32 WBC 5.4 RBC 3.39 L Hgb 10.0 L Hct 31.0 L MCV 91.4 MCH 29.5 MCHC 32.3 RDW 13.5 Plt Count 229 MPV 10.7 Neut # (Auto) 2.8 Lymph # (Auto) 1.9 [place] # (Auto) 0.5 Eos # (Auto) 0.2 Baso # (Auto) 0.0 Absolute Nucleated RBC 0.00 Nucleated RBC % 0.0 Sodium 142 Potassium 3.9 Chloride 103 Carbon Dioxide 31 Anion Gap 8.0 BUN 22 H Creatinine 1.4 H Estimated GFR (MDRD) 46 L Glucose 115 H Calcium 8.9 Total Bilirubin < 0.2 L AST 19 ALT 15 Alkaline Phosphatase 65 Troponin I High Sens 3.6 B-Natriuretic Peptide Total Protein 6.6 L Albumin 3.8 Globulin 2.8 Albumin/Globulin Ratio 1.4 Lipase 35 09/21/20 18:32 WBC RBC Hgb Hct MCV MCH MCHC RDW Plt Count MPV Neut # (Auto) Lymph # (Auto) [place] # (Auto) Eos # (Auto) Baso # (Auto) Absolute Nucleated RBC Nucleated RBC % Sodium Potassium Chloride Carbon Dioxide Anion Gap BUN Creatinine Estimated GFR (MDRD) Glucose Calcium Total Bilirubin AST ALT Alkaline Phosphatase Troponin I High Sens B-Natriuretic Peptide 97 Total Protein Albumin Globulin Albumin/Globulin Ratio Lipase - Rads (name of study) CXR Radiology: Final report received (No acute cardiopulmonary process.) CT pulmonary angio Radiology: Final report received (A small intraluminal filling defect is suspected in the right lower lobe posterior basal segmental artery.) PD MEDICAL DECISION MAKING - ED course Complexity details: reviewed results, re-evaluated patient, d/w patient, d/w assessment consultant (Dr. Hinds) ED course: 65-year-old female who is -[place]oven[place], carries a history of hypertension and is on estrogen for menopausal reasons presents to the emergency department with intermittent chest discomfort and mild shortness of air for the last 2 days. She underwent a lumbar laminectomy on [address] Abreu at [facility]. Today here in the emergency department her screening labs were unrevealing, sparing minor creatinine elevationof 1.4. Pt was repleated with 1 liter IVF her ein the ED. Her EKG is nonischemic and high-sensitivity troponin was negative. However given recent surgery under general anesthesia as well as the hormone use she presents as high risk for pulmonary embolus. A CT angio was completed and it does show a small intraluminal filling defect in the right lower posterior basal segment artery. Given the history, this is a provoked pulmonary embolus. She is now 3 weeks post surgery. I did speak on the phone with Dr. Hinds The on-call orthopedic surgeon for Dr. Abreu. He felt that it was safe at this time to institute anticoagulation. He reviewed the operative chart notes and stated that there were no dural tears during the laminectomy and no findings of a cerebrospinal fluid leak. The patient's postoperative incisions were reviewed by myself and appear fully healed. I discussed with the patient that this provoked pulmonary embolus is likely secondary to surgery but her continued hormone use puts her at high risk. She is to follow-up very closely with Dr. Odell for further evaluation. She may benefit from referral to an oncologist. She will be started on Eliquis which has a safer renal profile given her creatinine of 1.4. She will be given 1 week of medication further anticoagulation to be prescribed by her primary care provider. Patient's PESI score is 66 putting her at low risk for 30-day mortality. She gets points for her age only. There is no hypoxia, hx of CHF. No findings on imaging or EKG to suggest right heart strain. I spent significant time at the bedside with the patient discussing return precautions which include any falls, any sudden onset headache, black or bloody stools, blood in the urine, sudden weakness in the legs or sudden increase in low back pain. Departure - Departure Disposition: 01 Home, Self Care Clinical Impression: Pulmonary embolus Qualifiers: Pulmonary embolism type: single subsegmental (without acute cor pulmonale) Qualified Code(s): I26.93 - Single subsegmental pulmonary embolism without acute cor pulmonale Condition: Stable Record reviewed to determine appropriate education?: Yes Instructions: Embolism Pulmonary Dc, Apixaban oral tablets Follow-Up: Aric Odell DO [Primary Care Provider] - Prescriptions: Apixaban [Eliquis] 10 mg PO BID 7 Days #28 tablet Comments: Rosi garzon are seen today in the ER for chest discomfort and shortness of air. Our testing showed that you have a very small pulmonary embolus in your right lower lobe of your lung. You likely developed this pulmonary embolus because you recently had general anesthesia and surgery for your back as well as being on hormones for menopause. The 2 of these together puts you at high risk to develop a pulmonary embolus after surgery. I discussed with the back surgeons at [facility] and they felt it was safe to start anticoagulation medication. Your first dose is being given in the ER. Please discuss this ED visit with Dr. Odell as soon as possible. I am prescribing Eliquis your anticoagulant. I am giving you 1 week of medication. You need to take 10 mg twice a day for the next 7 days. After you finish the first week of medication Dr. Odell will write for a different prescription dose. After you finish the first week of medication Dr. Odell will write for a different prescription dose. You likely only need to be on this medication for 3 months. The anticoagulant medication does put you at high risk for bleeding. If you develop any sudden severe headache, have black or bloody stools, have blood in your urine, develop sudden severe back pain or have sudden weakness in your legs you are to return immediately to the ER. If you have any falls or trauma or hit your head then please return immediately to the ER for a second look.
[2020-09-21 18:40] LABS: BASOPHILS % (AUTO) 0.4 %; EOSINOPHILS # (AUTO) 0.2 10^3/uL (0.0-0.7); EOSINOPHILS % (AUTO) 3.3 %; LYMPHOCYTES # (AUTO) 1.9 10^3/uL (1.5-3.5); LYMPHOCYTES % (AUTO) 34.8 %; MEAN CORPUSCULAR HEMOGLOBIN 29.5 pg (27.0-31.0); MEAN CORPUSCULAR HGB CONC 32.3 g/dL (32.0-36.0); MEAN CORPUSCULAR VOLUME 91.4 fL (81.0-99.0); MEAN PLATELET VOLUME 10.7 fL (7.9-10.8); MONOCYTES # (AUTO) 0.5 10^3/uL (0.0-1.0); MONOCYTES % (AUTO) 9.9 %; NEUTROPHILS # (AUTO) 2.8 10^3/uL (1.5-6.6); NEUTROPHILS % (AUTO) 51.4 %; PLT - PLATELET COUNT 229 10^3/uL (130-450); RED BLOOD COUNT 3.39 10^6/uL (4.20-5.40); RED CELL DISTRIBUTION WIDTH 13.5 % (12.0-15.0); WHITE BLOOD COUNT 5.4 x10^3/uL (4.8-10.8)
[2020-09-21 18:55] LABS: ALBUMIN 3.8 g/dL (3.2-5.5); ALBUMIN/GLOBULIN RATIO 1.4 (1.0-2.2); ALKALINE PHOSPHATASE 65 IU/L (42-121); ALT ALANINE AMINOTRANSFERASE 15 IU/L (10-60); AST ASPARTATE AMINOTRANSFERASE 19 IU/L (10-42); BILIRUBIN,TOTAL < 0.2 mg/dL (0.2-1.0); BUN - BLOOD UREA NITROGEN 22 mg/dL (6-20); CALCIUM 8.9 mg/dL (8.5-10.3); CARBON DIOXIDE - CO2 31 mmol/L (21-32); CHLORIDE 103 mmol/L (101-111); CREATININE 1.4 mg/dL (0.4-1.0); GFR - MDRD 46 (>89); GLUCOSE 115 mg/dL (70-100); LIPASE 35 U/L (22-51); POTASSIUM 3.9 mmol/L (3.5-5.0); SODIUM 142 mmol/L (135-145); TOTAL PROTEIN 6.6 g/dL (6.7-8.2)
[2020-09-21] MEDS ORDERED: IOVERSOL 320 100 ML VIAL IVP ONE ×2 (18:55→19:51)
--- NOTE | 2020-09-21 19:00 | XRAY Report ---
PROCEDURE: Chest 1 View X-Ray INDICATIONS: Chest Pain TECHNIQUE: One view of the chest was acquired. COMPARISON: Chest single view, 06/28/2018. FINDINGS: Surgical changes and devices: None. Lungs and pleura: No pleural effusions or pneumothorax. Lungs are clear. Mediastinum: Mediastinal contours appear normal. Heart size is normal. Bones and chest wall: No suspicious bony lesions. Overlying soft tissues appear unremarkable. IMPRESSION: No acute cardiopulmonary disease. Reviewed by: Tanya Hassan MD on 09/21/2020 6:59 PM PDT Approved by: Tanya Hassan MD on 09/21/2020 6:59 PM PDT Station ID: [id number]
[2020-09-21] MEDS ORDERED: SODIUM CHLORIDE 0.9% 1,000 ML IV STA (19:13)
--- NOTE | 2020-09-21 20:58 | CT Report ---
PROCEDURE: ANGIO CHEST W/WO INDICATIONS: r/o PE CONTRAST: IV CONTRAST: Optiray 320 ml: 80 PO CONTRAST: *NO PO CONTRAST TECHNIQUE: After the administration of intravenous contrast, images were acquired from the pulmonary apices to t he posterior costophrenic angles. 3-dimensional maximum intensity projection (MIP) coronal and sagit christie reformats were then acquired through the thorax. For radiation dose reduction, the following was used: automated exposure control, adjustment of mA and/or kV according to patient size. COMPARISON: Chest x-ray one view, 09/21/2020. FINDINGS: Image quality: There are respiratory motion artifacts.. Pulmonary arteries: Pulmonary arteries are normal in size. A small intraluminal filling defect is amaral spected in the right lower lobe posterior basal segmental artery. Lungs and pleura: Lungs are clear. No pleural effusions or pneumothorax. Central and peripheral ai rways are patent. Mediastinum: Heart size is normal, without pericardial effusion. No mediastinal or hilar adenopathy . Thoracic aorta is normal in caliber and enhancement. Esophagus is normal in caliber, without hiat al hernia. Bones and chest wall: No suspicious bony lesions. Ribs and thoracic spine appear intact throughout. No axillary or supraclavicular adenopathy. The thyroid is normal in size and there are no incident al findings. Abdomen: Visualized upper abdominal solid organs appear normal in the early arterial phase of enhanc ement. A few colonic diverticula are present. No CT findings to suggest acute diverticulitis in the upper abdomen. IMPRESSION: 1. Possible small pulmonary embolus within the right lower lobe posterior basal segmental artery. Bec ause of respiratory motion artifacts, the test has decreased specificity. The result was discussed with Dr. Ferris. Reviewed by: Tanya Hassan MD on 09/21/2020 8:56 PM PDT Approved by: Tanya Hassan MD on 09/21/2020 8:56 PM PDT Station ID: [id number]
[2020-09-21] MEDS ORDERED: oxyCODONE 5 MG TABLET PO STA (22:04)
[2020-09-21] MEDS ORDERED: APIXABAN 5 MG TABLET PO STA (22:06)
[2020-09-21 22:44] VITALS: BP 127/68
== END 2020-09-21 22:45 | disposition home or self-care (01) ==
LOC: ED 17:54
DX: I26.93 Single subsegmental thrombotic pulmonary embolism without acute cor pulmonale (principal); Z98.890 Other specified postprocedural states; Z79.890 Hormone replacement therapy; Z78.0 Asymptomatic menopausal state; I10 Essential (primary) hypertension; Z87.891 Personal history of nicotine dependence
CPT/HCPCS: 36415; 71045; 71275; 80053; 83690; 83880; 84484; 85025; 93005; 99284; A9270; Q9967

== ENCOUNTER 2020-12-18 08:00 | Outpatient (CLI) | payer MEDICARE | END 2020-12-18 23:59 | disposition home or self-care (01) | LOC: COV 08:00 | PROVIDERS: ATTEND Family Medicine | DX: R05.9 Cough, unspecified (principal); Z20.822 Contact with and (suspected) exposure to COVID-19 ==

== ENCOUNTER 2021-01-19 08:00 | Outpatient (CLI) | payer MEDICARE ==
[2021-01-19 16:14] LABS: ALBUMIN 4.3 g/dL (3.2-5.5); ALBUMIN/GLOBULIN RATIO 1.3 (1.0-2.2); ALKALINE PHOSPHATASE 82 IU/L (42-121); ALT ALANINE AMINOTRANSFERASE 16 IU/L (10-60); AST ASPARTATE AMINOTRANSFERASE 25 IU/L (10-42); BILIRUBIN,TOTAL 0.3 mg/dL (0.2-1.0); BUN - BLOOD UREA NITROGEN 23 mg/dL (6-20); CALCIUM 9.3 mg/dL (8.5-10.3); CARBON DIOXIDE - CO2 29 mmol/L (21-32); CHLORIDE 102 mmol/L (101-111); CHOL/HDL RATIO 3.8 (<4.4); CHOLESTEROL 184 mg/dL; CREATININE 1.3 mg/dL (0.4-1.0); GFR - MDRD 50 (>89); GLUCOSE 88 mg/dL (70-100); HDL CHOLESTEROL 49 mg/dL; LDL CHOLESTEROL,CALCULATED 105 mg/dL; LDL/HDL RATIO 2.1 (<4.4); POTASSIUM 4.2 mmol/L (3.5-5.0); SODIUM 139 mmol/L (135-145); TOTAL PROTEIN 7.6 g/dL (6.7-8.2); TRIGLYCERIDES 148 mg/dL; VLDL CHOLESTEROL 30 mg/dL
[2021-01-19 17:56] LABS: BASOPHILS # (AUTO) 0.1 10^3/uL (0.0-0.1); BASOPHILS % (AUTO) 1.1 %; EOSINOPHILS # (AUTO) 1.4 10^3/uL (0.0-0.7); EOSINOPHILS % (AUTO) 22.7 %; HCT - HEMATOCRIT 35.4 % (37.0-47.0); LYMPHOCYTES # (AUTO) 1.5 10^3/uL (1.5-3.5); LYMPHOCYTES % (AUTO) 24.3 %; MEAN CORPUSCULAR HEMOGLOBIN 27.7 pg (27.0-31.0); MEAN CORPUSCULAR HGB CONC 31.1 g/dL (32.0-36.0); MEAN CORPUSCULAR VOLUME 89.2 fL (81.0-99.0); MEAN PLATELET VOLUME 12.2 fL (7.9-10.8); MONOCYTES # (AUTO) 0.9 10^3/uL (0.0-1.0); MONOCYTES % (AUTO) 13.9 %; NEUTROPHILS # (AUTO) 2.3 10^3/uL (1.5-6.6); NEUTROPHILS % (AUTO) 37.7 %; PLT - PLATELET COUNT 171 10^3/uL (130-450); RED BLOOD COUNT 3.97 10^6/uL (4.20-5.40); RED CELL DISTRIBUTION WIDTH 14.9 % (12.0-15.0); WHITE BLOOD COUNT 6.2 x10^3/uL (4.8-10.8)
== END 2021-01-19 23:59 | disposition home or self-care (01) ==
LOC: LAB.WCP 08:00
PROVIDERS: ATTEND Family Medicine
DX: R07.9 Chest pain, unspecified (principal); E78.5 Hyperlipidemia, unspecified
CPT/HCPCS: 36415; 80053; 80061; 83721; 84484; 85025

== ENCOUNTER 2021-01-19 15:32 | Outpatient (CLI) | payer MEDICARE ==
[2021-01-19] MEDS ORDERED: IOVERSOL 320 100 ML VIAL IVP ONE (16:53)
--- NOTE | 2021-01-19 17:11 | CT Report ---
PROCEDURE: ANGIO CHEST W/WO INDICATIONS: PULMONARY EMBOLISM CONTRAST: IV CONTRAST: Optiray 320 ml: 80 PO CONTRAST: *NO PO CONTRAST TECHNIQUE: After the administration of intravenous contrast, 2 mm axial images were acquired from the pulmonary apices to the posterior costophrenic angles during the arterial phase. In addition, 1 mm lung kernel and 5 mm soft tissue kernel reconstructions were performed. 3-dimensional coronal oblique maximum int ensity projection (MIP) reformats, 8 mm axial MIP, and 5 mm coronal and sagittal MPR reformats were t hen performed through the thorax. For radiation dose reduction, the following was used: automated exp osure control, adjustment of mA and/or kV according to patient size. COMPARISON: CT pulmonary angiogram 09/21/2020. FINDINGS: Image quality: Excellent. Pulmonary arteries: Pulmonary arteries are normal in size, and demonstrate no intraluminal filling d efects to suggest central pulmonary embolism. Lungs and pleura: Suspect mild paraseptal and edema. Minimal dependent atelectasis. Right upper lobe pulmonary nodule measuring 0.4 cm, (6/147), unchanged. Minimal thickening at the right major fissure . No pleural effusions or pneumothorax. Central and peripheral airways are patent. Mediastinum: Heart size is at the upper limits of normal, without pericardial effusion. No mediasti nal or hilar adenopathy. Thoracic aorta is normal in caliber and enhancement. Esophagus is normal i n caliber, without hiatal hernia. Bones and chest wall: ACDF. No suspicious bony lesions. Ribs and thoracic spine appear intact throu ghout. Shotty appearing axillary and supraclavicular lymph nodes which is new compared to CT from Sep. The thyroid is normal in size and there are no incidental findings. Abdomen: Visualized upper abdominal solid organs appear normal in the early arterial phase of enhanc ement. IMPRESSION: 1. No pulmonary embolism. 2. No acute airspace opacity. 3. Shotty appearing supraclavicular and axillary adenopathy bilaterally. Results were communicated to Dr. Aric Odell at 01/19/2021 5:09 PM PST. Reviewed by: Carmine Mansfield MD on 01/19/2021 5:10 PM PST Approved by: Carmine Mansfield MD on 01/19/2021 5:10 PM PST Station ID: [id number]
== END 2021-01-19 15:33 | disposition home or self-care (01) ==
LOC: LAB 15:32
PROVIDERS: ATTEND Family Medicine
DX: I26.99 Other pulmonary embolism without acute cor pulmonale (principal); R07.9 Chest pain, unspecified; E78.5 Hyperlipidemia, unspecified; R59.0 Localized enlarged lymph nodes
CPT/HCPCS: 36415; 71275; 80053; 80061; 84484; 85025; Q9967; 82565; 83721

== ENCOUNTER 2021-07-18 13:24 | Outpatient (CLI) | payer MEDICARE ==
--- NOTE | 2021-07-18 14:04 | XRAY Report ---
PROCEDURE: Knee 2 View BILAT INDICATIONS: BILATERAL KNEE SWELLING AND PX TECHNIQUE: 2 views of the left knee(s) were acquired. AP weightbearing view of both knees. COMPARISON: None. FINDINGS: BONES/JOINT: No acute, displaced fracture or dislocation. [id number] left suprapatellar joint effusion. Mild narrowing of the bilateral medial compartment joint spaces. Left patellar enthesophytes. As well as osteophytosis SOFT TISSUES: Suggestion of left lateral soft tissue edema. IMPRESSION: 1.Left knee degeneration as detailed above. Reviewed by: David Tabares MD on 07/18/2021 2:03 PM PDT Approved by: David Tabares MD on 07/18/2021 2:03 PM PDT Station ID: [id number]
== END 2021-07-18 23:59 | disposition home or self-care (01) ==
LOC: DI.N 13:24
PROVIDERS: ATTEND Registered Nurse
DX: M25.462 Effusion, left knee (principal); M17.0 Bilateral primary osteoarthritis of knee; M76.892 Other specified enthesopathies of left lower limb, excluding foot

== ENCOUNTER 2021-07-20 13:56 | Outpatient (CLI) | payer MEDICARE ==
--- NOTE | 2021-07-20 15:03 | Ultrasound Report ---
PROCEDURE: Duplex Ext Veins Left INDICATIONS: LEFT LEG SWELLING TECHNIQUE: Real-time imaging, as well as color and pulse Doppler interrogation, were performed of the lower extr emity deep veins from the inguinal ligament to the popliteal fossa. COMPARISON: None. FINDINGS: The deep veins are normally compressible, and free of intraluminal thrombus. Color and pu lse Doppler demonstrate normal phasic intraluminal flow. There is normal augmentation response to di stal compression maneuver. IMPRESSION: No deep venous thrombosis. Reviewed by: Veronica Cordova MD on 07/20/2021 3:01 PM PDT Approved by: Veronica Cordova MD on 07/20/2021 3:01 PM PDT Station ID: [id number]
== END 2021-07-20 13:57 | disposition home or self-care (01) ==
LOC: DI 13:56
PROVIDERS: ATTEND Registered Nurse
DX: R22.42 Localized swelling, mass and lump, left lower limb (principal)

== ENCOUNTER 2021-07-31 13:59 | Outpatient (CLI) | payer MEDICARE ==
[2021-07-31 17:52] LABS: BILIRUBIN,URINE NEGATIVE (NEGATIVE); GLUCOSE, URINE (UA) NEGATIVE (NEGATIVE); KETONES,URINE (UA) NEGATIVE (NEGATIVE); LEUKOCYTE ESTERASE, URINE NEGATIVE (NEGATIVE); NITRITE,URINE NEGATIVE (NEGATIVE); OCCULT BLOOD,URINE NEGATIVE (NEGATIVE); PH,URINE 6.5 PH (5.0-7.5); PROTEIN,URINE NEGATIVE (NEGATIVE); UROBILINOGEN,URINE 0.2 (NORMAL) E.U./dL (NORMAL)
[2021-07-31 17:59] LABS: BASOPHILS % (AUTO) 0.8 %; EOSINOPHILS # (AUTO) 0.2 10^3/uL (0.0-0.7); HCT - HEMATOCRIT 35.6 % (37.0-47.0); HGB - HEMOGLOBIN 11.3 g/dL (12.0-16.0); LYMPHOCYTES # (AUTO) 2.5 10^3/uL (1.5-3.5); LYMPHOCYTES % (AUTO) 46.7 %; MEAN CORPUSCULAR HEMOGLOBIN 28.3 pg (27.0-31.0); MEAN CORPUSCULAR HGB CONC 31.7 g/dL (32.0-36.0); MEAN PLATELET VOLUME 11.9 fL (7.9-10.8); MONOCYTES # (AUTO) 0.6 10^3/uL (0.0-1.0); MONOCYTES % (AUTO) 10.8 %; NEUTROPHILS % (AUTO) 37.5 %; PLT - PLATELET COUNT 220 10^3/uL (130-450); RED CELL DISTRIBUTION WIDTH 12.7 % (12.0-15.0); WHITE BLOOD COUNT 5.3 x10^3/uL (4.8-10.8)
[2021-07-31 18:06] LABS: CLARITY,URINE CLEAR (CLEAR)
[2021-07-31 18:18] LABS: ALBUMIN/GLOBULIN RATIO 1.1 (1.0-2.2); BILIRUBIN,TOTAL 0.5 mg/dL (0.2-1.0); CALCIUM 9.6 mg/dL (8.5-10.3); CREATININE 1.2 mg/dL (0.4-1.0); POTASSIUM 4.4 mmol/L (3.5-5.0); TOTAL PROTEIN 7.6 g/dL (6.7-8.2)
[2021-07-31 18:30] LABS: CREATININE,URINE 115.7 mg/dL; MICROALBUM/CREATININE RATIO,UR 1.7 ug/mg (<30.0); MICROALBUMIN,URINE 0.2 mg/dL (0-300.0)
[2021-07-31 18:35] LABS: THYROID STIMULATING HORMONE 0.97 uIU/mL (0.34-5.60)
== END 2021-07-31 14:00 | disposition home or self-care (01) ==
LOC: LAB.N 13:59
PROVIDERS: ATTEND Physician Assistant
DX: R60.0 Localized edema (principal); N39.46 Mixed incontinence
CPT/HCPCS: 36415; 80053; 81001; 81003; 82043; 82570; 83880; 84443; 85025; 87086

== ENCOUNTER 2021-08-23 09:48 | Outpatient (CLI) | payer MEDICARE | END 2021-08-23 09:49 | disposition home or self-care (01) | LOC: DI 09:48 | PROVIDERS: ATTEND Physician Assistant | DX: R60.0 Localized edema (principal) | CPT/HCPCS: 93306 ==

== ENCOUNTER 2022-02-18 08:00 | Outpatient (CLI) | payer MEDICARE ==
[2022-02-18 15:59] LABS: BASOPHILS % (AUTO) 0.5 %; EOSINOPHILS # (AUTO) 0.2 10^3/uL (0.0-0.7); EOSINOPHILS % (AUTO) 3.6 %; HCT - HEMATOCRIT 32.4 % (37.0-47.0); HGB - HEMOGLOBIN 10.4 g/dL (12.0-16.0); LYMPHOCYTES % (AUTO) 34.1 %; MEAN CORPUSCULAR HEMOGLOBIN 27.5 pg (27.0-31.0); MEAN CORPUSCULAR HGB CONC 32.1 g/dL (32.0-36.0); MEAN CORPUSCULAR VOLUME 85.7 fL (81.0-99.0); MONOCYTES # (AUTO) 0.6 10^3/uL (0.0-1.0); MONOCYTES % (AUTO) 9.6 %; PLT - PLATELET COUNT 249 10^3/uL (130-450); RED BLOOD COUNT 3.78 10^6/uL (4.20-5.40); RED CELL DISTRIBUTION WIDTH 14.6 % (12.0-15.0); WHITE BLOOD COUNT 5.8 x10^3/uL (4.8-10.8)
[2022-02-18 16:11] LABS: ALBUMIN 3.6 g/dL (3.2-5.5); ALBUMIN/GLOBULIN RATIO 1.2 (1.0-2.2); BILIRUBIN,TOTAL 0.5 mg/dL (0.2-1.0); CALCIUM 9.3 mg/dL (8.5-10.3); CREATININE 1.1 mg/dL (0.4-1.0); CRP - C-REACTIVE PROTEIN 2.7 mg/dL (0-1.0); POTASSIUM 4.5 mmol/L (3.5-5.0); TOTAL PROTEIN 6.6 g/dL (6.7-8.2)
== END 2022-02-18 23:59 | disposition home or self-care (01) ==
LOC: LAB.R 08:00
PROVIDERS: ATTEND Internal Medicine Infectious Disease
DX: M86.9 Osteomyelitis, unspecified (principal)
CPT/HCPCS: 80053; 85025; 86140

== ENCOUNTER 2022-02-25 17:33 | Outpatient (CLI) | payer MEDICARE ==
[2022-02-25 17:47] LABS: BASOPHILS # (AUTO) 0.1 10^3/uL (0.0-0.1); BASOPHILS % (AUTO) 0.7 %; EOSINOPHILS # (AUTO) 0.4 10^3/uL (0.0-0.7); HCT - HEMATOCRIT 33.3 % (37.0-47.0); HGB - HEMOGLOBIN 10.7 g/dL (12.0-16.0); LYMPHOCYTES # (AUTO) 2.4 10^3/uL (1.5-3.5); LYMPHOCYTES % (AUTO) 34.1 %; MEAN CORPUSCULAR HEMOGLOBIN 27.1 pg (27.0-31.0); MEAN CORPUSCULAR HGB CONC 32.1 g/dL (32.0-36.0); MEAN CORPUSCULAR VOLUME 84.3 fL (81.0-99.0); MEAN PLATELET VOLUME 11.2 fL (7.9-10.8); MONOCYTES # (AUTO) 0.6 10^3/uL (0.0-1.0); MONOCYTES % (AUTO) 9.2 %; NEUTROPHILS # (AUTO) 3.5 10^3/uL (1.5-6.6); NEUTROPHILS % (AUTO) 50.6 %; PLT - PLATELET COUNT 298 10^3/uL (130-450); RED BLOOD COUNT 3.95 10^6/uL (4.20-5.40); RED CELL DISTRIBUTION WIDTH 14.3 % (12.0-15.0)
[2022-02-25 17:57] LABS: ALBUMIN 3.8 g/dL (3.2-5.5); ALBUMIN/GLOBULIN RATIO 1.2 (1.0-2.2); ALKALINE PHOSPHATASE 152 IU/L (42-121); ALT ALANINE AMINOTRANSFERASE 27 IU/L (10-60); AST ASPARTATE AMINOTRANSFERASE 36 IU/L (10-42); BILIRUBIN,TOTAL 0.6 mg/dL (0.2-1.0); BUN - BLOOD UREA NITROGEN 18 mg/dL (6-20); CALCIUM 9.3 mg/dL (8.5-10.3); CARBON DIOXIDE - CO2 27 mmol/L (21-32); CHLORIDE 101 mmol/L (101-111); CREATININE 1.1 mg/dL (0.4-1.0); GFR - MDRD 60 (>89); GLUCOSE 84 mg/dL (70-100); POTASSIUM 4.1 mmol/L (3.5-5.0); SODIUM 136 mmol/L (135-145)
[2022-02-25 18:17] LABS: CRP - C-REACTIVE PROTEIN < 1.0 mg/dL (0-1.0)
== END 2022-02-25 17:34 | disposition home or self-care (01) ==
LOC: LAB.R 17:33
PROVIDERS: ATTEND Internal Medicine Infectious Disease
DX: M86.9 Osteomyelitis, unspecified (principal)
CPT/HCPCS: 80053; 85025; 86140

== ENCOUNTER 2022-03-05 15:18 | Outpatient (CLI) | payer MEDICARE ==
[2022-03-05 15:37] LABS: BASOPHILS % (AUTO) 0.5 %; EOSINOPHILS # (AUTO) 0.3 10^3/uL (0.0-0.7); EOSINOPHILS % (AUTO) 3.8 %; HCT - HEMATOCRIT 33.1 % (37.0-47.0); HGB - HEMOGLOBIN 10.5 g/dL (12.0-16.0); LYMPHOCYTES # (AUTO) 2.3 10^3/uL (1.5-3.5); LYMPHOCYTES % (AUTO) 30.5 %; MEAN CORPUSCULAR HGB CONC 31.7 g/dL (32.0-36.0); MEAN CORPUSCULAR VOLUME 85.1 fL (81.0-99.0); MEAN PLATELET VOLUME 11.2 fL (7.9-10.8); MONOCYTES # (AUTO) 0.7 10^3/uL (0.0-1.0); MONOCYTES % (AUTO) 8.6 %; NEUTROPHILS # (AUTO) 4.3 10^3/uL (1.5-6.6); NEUTROPHILS % (AUTO) 56.3 %; PLT - PLATELET COUNT 251 10^3/uL (130-450); RED BLOOD COUNT 3.89 10^6/uL (4.20-5.40); WHITE BLOOD COUNT 7.7 x10^3/uL (4.8-10.8)
[2022-03-05 15:38] LABS: CALCIUM 9.3 mg/dL (8.5-10.3); CARBON DIOXIDE - CO2 25 mmol/L (21-32); CHLORIDE 103 mmol/L (101-111); GLUCOSE 108 mg/dL (70-100); POTASSIUM 3.9 mmol/L (3.5-5.0); SODIUM 139 mmol/L (135-145)
[2022-03-05 16:14] LABS: ALBUMIN 3.7 g/dL (3.2-5.5); ALBUMIN/GLOBULIN RATIO 1.2 (1.0-2.2); ALKALINE PHOSPHATASE 146 IU/L (42-121); ALT ALANINE AMINOTRANSFERASE 36 IU/L (10-60); AST ASPARTATE AMINOTRANSFERASE 39 IU/L (10-42); BILIRUBIN,TOTAL 0.7 mg/dL (0.2-1.0); BUN - BLOOD UREA NITROGEN 19 mg/dL (6-20); CREATININE 1.1 mg/dL (0.4-1.0); GFR - MDRD 60 (>89); TOTAL PROTEIN 6.9 g/dL (6.7-8.2)
[2022-03-05 17:05] LABS: CRP - C-REACTIVE PROTEIN < 1.0 mg/dL (0-1.0)
== END 2022-03-05 15:19 | disposition home or self-care (01) ==
LOC: LAB.R 15:18
PROVIDERS: ATTEND Internal Medicine Infectious Disease
DX: M86.9 Osteomyelitis, unspecified (principal)
CPT/HCPCS: 80053; 85025; 86140

== ENCOUNTER 2022-03-12 16:16 | Outpatient (CLI) | payer MEDICARE ==
[2022-03-12 16:32] LABS: BASOPHILS % (AUTO) 0.5 %; EOSINOPHILS # (AUTO) 0.3 10^3/uL (0.0-0.7); EOSINOPHILS % (AUTO) 4.8 %; HCT - HEMATOCRIT 33.8 % (37.0-47.0); HGB - HEMOGLOBIN 10.6 g/dL (12.0-16.0); LYMPHOCYTES % (AUTO) 33.7 %; MEAN CORPUSCULAR HEMOGLOBIN 26.8 pg (27.0-31.0); MEAN CORPUSCULAR HGB CONC 31.4 g/dL (32.0-36.0); MEAN CORPUSCULAR VOLUME 85.4 fL (81.0-99.0); MEAN PLATELET VOLUME 11.4 fL (7.9-10.8); MONOCYTES # (AUTO) 0.6 10^3/uL (0.0-1.0); MONOCYTES % (AUTO) 9.5 %; NEUTROPHILS % (AUTO) 51.2 %; PLT - PLATELET COUNT 210 10^3/uL (130-450); RED BLOOD COUNT 3.96 10^6/uL (4.20-5.40); RED CELL DISTRIBUTION WIDTH 14.5 % (12.0-15.0); WHITE BLOOD COUNT 5.9 x10^3/uL (4.8-10.8)
[2022-03-12 16:54] LABS: ALBUMIN 3.6 g/dL (3.2-5.5); ALBUMIN/GLOBULIN RATIO 1.2 (1.0-2.2); ALKALINE PHOSPHATASE 149 IU/L (42-121); ALT ALANINE AMINOTRANSFERASE 31 IU/L (10-60); AST ASPARTATE AMINOTRANSFERASE 37 IU/L (10-42); BILIRUBIN,TOTAL 0.6 mg/dL (0.2-1.0); BUN - BLOOD UREA NITROGEN 17 mg/dL (6-20); CALCIUM 9.2 mg/dL (8.5-10.3); CARBON DIOXIDE - CO2 26 mmol/L (21-32); CHLORIDE 99 mmol/L (101-111); CREATININE 1.2 mg/dL (0.4-1.0); GFR - MDRD 54 (>89); GLUCOSE 145 mg/dL (70-100); POTASSIUM 3.8 mmol/L (3.5-5.0); SODIUM 137 mmol/L (135-145); TOTAL PROTEIN 6.6 g/dL (6.7-8.2)
[2022-03-12 17:10] LABS: CRP - C-REACTIVE PROTEIN < 1.0 mg/dL (0-1.0)
== END 2022-03-12 16:17 | disposition home or self-care (01) ==
LOC: LAB.R 16:16
PROVIDERS: ATTEND Internal Medicine Infectious Disease
DX: M86.9 Osteomyelitis, unspecified (principal)
CPT/HCPCS: 80053; 85025; 86140

== ENCOUNTER 2022-03-14 14:51 | Outpatient (CLI) | payer MEDICARE ==
[2022-03-14 15:02] LABS: BASOPHILS % (AUTO) 0.8 %; EOSINOPHILS # (AUTO) 0.3 10^3/uL (0.0-0.7); EOSINOPHILS % (AUTO) 6.4 %; HCT - HEMATOCRIT 32.6 % (37.0-47.0); HGB - HEMOGLOBIN 10.3 g/dL (12.0-16.0); LYMPHOCYTES % (AUTO) 38.6 %; MEAN CORPUSCULAR HEMOGLOBIN 26.8 pg (27.0-31.0); MEAN CORPUSCULAR HGB CONC 31.6 g/dL (32.0-36.0); MEAN CORPUSCULAR VOLUME 84.9 fL (81.0-99.0); MEAN PLATELET VOLUME 12.4 fL (7.9-10.8); MONOCYTES # (AUTO) 0.5 10^3/uL (0.0-1.0); MONOCYTES % (AUTO) 9.5 %; NEUTROPHILS # (AUTO) 2.4 10^3/uL (1.5-6.6); NEUTROPHILS % (AUTO) 44.5 %; PLT - PLATELET COUNT 189 10^3/uL (130-450); RED BLOOD COUNT 3.84 10^6/uL (4.20-5.40); RED CELL DISTRIBUTION WIDTH 14.6 % (12.0-15.0); WHITE BLOOD COUNT 5.3 x10^3/uL (4.8-10.8)
[2022-03-14 15:42] LABS: ALBUMIN 3.5 g/dL (3.2-5.5); ALBUMIN/GLOBULIN RATIO 1.1 (1.0-2.2); ALKALINE PHOSPHATASE 157 IU/L (42-121); ALT ALANINE AMINOTRANSFERASE 42 IU/L (10-60); AST ASPARTATE AMINOTRANSFERASE 50 IU/L (10-42); BILIRUBIN,TOTAL 0.7 mg/dL (0.2-1.0); BUN - BLOOD UREA NITROGEN 20 mg/dL (6-20); CALCIUM 9.2 mg/dL (8.5-10.3); CARBON DIOXIDE - CO2 27 mmol/L (21-32); CHLORIDE 104 mmol/L (101-111); CREATININE 1.1 mg/dL (0.4-1.0); GFR - MDRD 60 (>89); GLUCOSE 86 mg/dL (70-100); POTASSIUM 4.2 mmol/L (3.5-5.0); SODIUM 138 mmol/L (135-145); TOTAL PROTEIN 6.6 g/dL (6.7-8.2)
[2022-03-14 15:44] LABS: CRP - C-REACTIVE PROTEIN < 1.0 mg/dL (0-1.0)
== END 2022-03-14 14:52 | disposition home or self-care (01) ==
LOC: LAB.R 14:51
PROVIDERS: ATTEND Internal Medicine Infectious Disease
DX: M86.9 Osteomyelitis, unspecified (principal)
CPT/HCPCS: 80053; 85025; 86140

== ENCOUNTER 2022-03-18 08:00 | Outpatient (CLI) | payer MEDICARE ==
[2022-03-18 17:24] LABS: ALBUMIN 3.9 g/dL (3.2-5.5); ALBUMIN/GLOBULIN RATIO 1.2 (1.0-2.2); ALKALINE PHOSPHATASE 167 IU/L (42-121); ALT ALANINE AMINOTRANSFERASE 43 IU/L (10-60); AST ASPARTATE AMINOTRANSFERASE 45 IU/L (10-42); BILIRUBIN,TOTAL 0.5 mg/dL (0.2-1.0); BUN - BLOOD UREA NITROGEN 20 mg/dL (6-20); CALCIUM 9.5 mg/dL (8.5-10.3); CARBON DIOXIDE - CO2 27 mmol/L (21-32); CHLORIDE 102 mmol/L (101-111); CREATININE 1.2 mg/dL (0.4-1.0); GFR - MDRD 54 (>89); GLUCOSE 91 mg/dL (70-100); POTASSIUM 4.5 mmol/L (3.5-5.0); SODIUM 138 mmol/L (135-145); TOTAL PROTEIN 7.1 g/dL (6.7-8.2)
[2022-03-18 17:40] LABS: BASOPHILS % (AUTO) 0.8 %; EOSINOPHILS # (AUTO) 0.3 10^3/uL (0.0-0.7); EOSINOPHILS % (AUTO) 6.1 %; HCT - HEMATOCRIT 35.7 % (37.0-47.0); HGB - HEMOGLOBIN 11.3 g/dL (12.0-16.0); LYMPHOCYTES # (AUTO) 1.9 10^3/uL (1.5-3.5); LYMPHOCYTES % (AUTO) 37.2 %; MEAN CORPUSCULAR HEMOGLOBIN 26.7 pg (27.0-31.0); MEAN CORPUSCULAR HGB CONC 31.7 g/dL (32.0-36.0); MEAN CORPUSCULAR VOLUME 84.4 fL (81.0-99.0); MEAN PLATELET VOLUME 12.6 fL (7.9-10.8); MONOCYTES # (AUTO) 0.6 10^3/uL (0.0-1.0); MONOCYTES % (AUTO) 10.9 %; NEUTROPHILS # (AUTO) 2.3 10^3/uL (1.5-6.6); NEUTROPHILS % (AUTO) 44.8 %; PLT - PLATELET COUNT 214 10^3/uL (130-450); RED BLOOD COUNT 4.23 10^6/uL (4.20-5.40); RED CELL DISTRIBUTION WIDTH 14.3 % (12.0-15.0); WHITE BLOOD COUNT 5.2 x10^3/uL (4.8-10.8)
[2022-03-18 17:56] LABS: CRP - C-REACTIVE PROTEIN < 1.0 mg/dL (0-1.0)
== END 2022-03-18 23:59 | disposition home or self-care (01) ==
LOC: LAB.R 08:00
PROVIDERS: ATTEND Internal Medicine Infectious Disease
DX: M86.9 Osteomyelitis, unspecified (principal)
CPT/HCPCS: 80053; 85025; 86140

== ENCOUNTER 2022-12-11 10:28 | Outpatient (CLI) | payer MEDICARE ==
[2022-12-11 12:03] LABS: BASOPHILS % (AUTO) 0.8 %; EOSINOPHILS # (AUTO) 0.3 10^3/uL (0.0-0.7); EOSINOPHILS % (AUTO) 5.1 %; HGB - HEMOGLOBIN 11.7 g/dL (12.0-16.0); LYMPHOCYTES # (AUTO) 1.8 10^3/uL (1.5-3.5); LYMPHOCYTES % (AUTO) 36.5 %; MEAN CORPUSCULAR HEMOGLOBIN 27.6 pg (27.0-31.0); MEAN CORPUSCULAR HGB CONC 31.6 g/dL (32.0-36.0); MEAN CORPUSCULAR VOLUME 87.3 fL (81.0-99.0); MEAN PLATELET VOLUME 11.7 fL (7.9-10.8); MONOCYTES # (AUTO) 0.6 10^3/uL (0.0-1.0); MONOCYTES % (AUTO) 11.6 %; NEUTROPHILS # (AUTO) 2.2 10^3/uL (1.5-6.6); NEUTROPHILS % (AUTO) 45.6 %; PLT - PLATELET COUNT 176 10^3/uL (130-450); RED BLOOD COUNT 4.24 10^6/uL (4.20-5.40); WHITE BLOOD COUNT 4.9 x10^3/uL (4.8-10.8)
[2022-12-11 12:24] LABS: BUN - BLOOD UREA NITROGEN 25 mg/dL (6-20); CALCIUM 9.4 mg/dL (8.5-10.3); CARBON DIOXIDE - CO2 27 mmol/L (21-32); CHLORIDE 107 mmol/L (101-111); CHOL/HDL RATIO 5.3 (<4.4); CHOLESTEROL 247 mg/dL; CREATININE 1.4 mg/dL (0.6-1.3); GFR - MDRD 45 (>89); GLUCOSE 85 mg/dL (74-104); HDL CHOLESTEROL 47 mg/dL; LDL CHOLESTEROL,CALCULATED 166 mg/dL; LDL/HDL RATIO 3.5 (<4.4); POTASSIUM 4.3 mmol/L (3.5-4.5); SODIUM 139 mmol/L (135-145); TRIGLYCERIDES 170 mg/dL (48-352); VLDL CHOLESTEROL 34 mg/dL
== END 2022-12-11 10:29 | disposition home or self-care (01) ==
LOC: LAB.N 10:28
PROVIDERS: ATTEND Internal Medicine Cardiovascular Disease
DX: E78.5 Hyperlipidemia, unspecified (principal); I42.8 Other cardiomyopathies
CPT/HCPCS: 36415; 80048; 80061; 83721; 85025

== ENCOUNTER 2023-02-02 11:24 | Outpatient (CLI) | payer MEDICARE ==
--- NOTE | 2023-02-02 13:38 | Ultrasound Report ---
PROCEDURE: Head or Neck Soft Tissue INDICATIONS: ENLARGED THYROID TECHNIQUE: Real-time scanning was performed of the thyroid gland, with image documentation. COMPARISON: None FINDINGS: Right: Thyroid lobe measures 4.2 x 1.4 x 1.5 cm, and is homogeneous in echotexture. Volume is 4.2 m L. Left: Thyroid lobe measures 3.7 x 1.5 x 1.8 cm, and is homogenous in echotexture. Volume is 4.6 mL. Isthmus: 0.5 CM thick. Homogeneous thyroid parenchyma with no nodules. IMPRESSION: Normal sonographic appearance of the thyroid gland with no nodules. Reviewed by: Bolivar Harvey MD on 02/02/2023 1:36 PM PST Approved by: Boliavr Harvey MD on 02/02/2023 1:36 PM PST Station ID: [id number]
== END 2023-02-02 11:25 | disposition home or self-care (01) ==
LOC: DI 11:24
PROVIDERS: ATTEND Physician Assistant
DX: E04.9 Nontoxic goiter, unspecified (principal)

== ENCOUNTER 2023-04-14 10:23 | Outpatient (CLI) | payer MEDICARE ==
--- NOTE | 2023-04-15 16:23 | Mammography Report ---
BILATERAL DIGITAL SCREENING MAMMOGRAM 3D/2D: 04/14/2023 CLINICAL: Routine screening. Comparison is made to exams dated: 06/15/2021 ultrasound, 01/29/2021 mammogram, 05/31/2020 ultrasound, 12/22/2019 ultrasound, 12/22/2019 mammogram, and 05/24/2019 mammogram - . There are scattered areas of fibroglandular density in both breasts (category b / 25%-50% glandular t issue). There is a focal asymmetry in the right breast central to the nipple middle depth. No other significant masses, calcifications, or other findings are seen in either breast. IMPRESSION: INCOMPLETE: NEEDS ADDITIONAL IMAGING EVALUATION The focal asymmetry in the right breast is indeterminate. Additional views with possible ultrasound are recommended. Based on the Tyrer Cuzick model (a risk assessment model) the patient's lifetime risk is 3.7% and her 10 year risk is 2.2%. According to the ACR, ACS, and NCCN guidelines, an annual breast MRI exam mirna g with mammogram is recommended if the patient's lifetime risk is 20% or greater. This exam was interpreted at Station ID: [id number]. NOTE: For mammograms, a report in lay terms will be sent to the patient. Approximately 15% of breast malignancies will not be visualized mammographically. In the management of a palpable breast mass, a negative mammogram must not discourage biopsy of a clinically suspicious lesion. Electronically Signed By: Angela hurtado/annmarie:04/14/2023 15:31:40 ACR BI-RADS Category 0: Incomplete 3340F PARENCHYMAL PATTERN: (A) - The breast(s) demonstrate(s) scattered fibroglandular densities. BI-RADS CATEGORY: (0) - 0 Mammo and [place] [id number] Immediate follow-up LATERALITY: (B)
== END 2023-04-14 10:24 | disposition home or self-care (01) ==
LOC: DI.N 10:23
DX: Z12.31 Encounter for screening mammogram for malignant neoplasm of breast (principal); R92.323 Mammographic fibroglandular density, bilateral breasts; R92.8 Other abnormal and inconclusive findings on diagnostic imaging of breast

== ENCOUNTER 2023-04-25 08:42 | Outpatient (CLI) | payer MEDICARE ==
--- NOTE | 2023-04-28 10:32 | Mammography Report ---
UNILATERAL RIGHT DIGITAL DIAGNOSTIC MAMMOGRAM 3D/2D WITH LATEROMEDIAL SPOT COMPRESSION: 04/25/2023 CLINICAL: Patient returns today to evaluate a focal asymmetry in the right breast. Comparison is made to exams dated: 04/14/2023 mammogram - [facility] and 01/29/2021 mammogram - [facility]. There are scattered areas of fibroglandular density in the right breast (category b / 25%-50% glandul ar tissue). The previously described oval focal asymmetry in the right breast central to the nipple middle depth is not definitively confirmed in additional views. This is less prominent and decreased in size. No other significant masses or calcifications are seen in the breast. IMPRESSION: INCOMPLETE: NEEDS ADDITIONAL IMAGING EVALUATION The possible oval focal asymmetry in the right breast is indeterminate. An ultrasound is recommende d for further evaluation and is scheduled to immediately follow this examination. Based on the Tyrer Cuzick model (a risk assessment model) the patient's lifetime risk is 3.7% and her 10 year risk is 2.2%. According to the ACR, ACS, and NCCN guidelines, an annual breast MRI exam mirna g with mammogram is recommended if the patient's lifetime risk is 20% or greater. This exam was interpreted at Station ID: [id number]. NOTE: For mammograms, a report in lay terms will be sent to the patient. Approximately 15% of breast malignancies will not be visualized mammographically. In the management of a palpable breast mass, a negative mammogram must not discourage biopsy of a clinically suspicious lesion. Electronically Signed By: Ten Baker M.D. aty/:04/25/2023 10:25:53 ACR BI-RADS Category 0: Incomplete 3340F PARENCHYMAL PATTERN: (A) - The breast(s) demonstrate(s) scattered fibroglandular densities. BI-RADS CATEGORY: (0) - 0 Ultrasound [id number] Immediate follow-up LATERALITY: (R)
--- NOTE | 2023-04-28 10:32 | Ultrasound Report ---
LIMITED ULTRASOUND OF RIGHT BREAST: 04/25/2023 CLINICAL: Patient returns today to evaluate a focal asymmetry in the right breast. Comparison is made to exams dated: 04/25/2023 mammogram, 04/14/2023 mammogram - [facility], 06/15/2021 ultrasound, 01/29/2021 mammogram, 05/31/2020 ultrasound, and 12/22/2019 ultrasound - [facility]. Real-time ultrasound of the right breast retroareolar was performed. Woo scale images of the real-t tere examination were reviewed. No significant abnormalities were seen sonographically in the right breast. IMPRESSION: NEGATIVE There is no sonographic evidence of malignancy. There is no abnormality seen in the right breast to correspond with the mammography finding which lik rita represents normal fibroglandular tissue. A 1 year screening mammogram is recommended. Findings and recommendations were conveyed to the patient during today's evaluation. This exam was interpreted at Station ID: [id number]. Electronically Signed By: Ten Baker M.D. aty/:04/25/2023 10:26:58 Ultrasound BI-RADS: 1 Negative BI-RADS CATEGORY: (1) - 1 Mammogram [id number] 1 year screening LATERALITY: (B)
== END 2023-04-25 08:43 | disposition home or self-care (01) ==
LOC: DI 08:42
PROVIDERS: ATTEND Physician Assistant
DX: R92.8 Other abnormal and inconclusive findings on diagnostic imaging of breast (principal); R92.321 Mammographic fibroglandular density, right breast